=== PATIENT | male | born 1945 | race Two or more races ===

== ENCOUNTER 2018-10-06 13:33 | Inpatient (IN) | payer MEDICARE, OTHER ==
[~2018-10-06] VITALS: Ht 188 cm; Wt 113.4 kg
--- NOTE | 2018-10-06 13:45 | NUR ---
MAR LOUISE FRM [facility] FOR SYNCOPAL EPISODE 2X TODAY, N/V/D X 3 DAYS. PATIENT A/OX3, BREATHING EVEN AND UNLABORED, BP SLIGHTLY LOW. AWAITING FOR MD CARPIO.
[2018-10-06] MEDS ORDERED: MIDO5TAB PO (13:58)
[2018-10-06] MEDS ORDERED: ACET250T3 PO (13:58)
[2018-10-06] MEDS ORDERED: METF-440 PO (13:58)
[2018-10-06] MEDS ORDERED: DOCU-141 PO (13:58)
[2018-10-06] MEDS ORDERED: CANA300T PO (13:58)
[2018-10-06] MEDS ORDERED: ENOX40DI SQ (13:58)
[2018-10-06] MEDS ORDERED: SITA100T PO (13:58)
[2018-10-06] MEDS ORDERED: GEMF600T5 PO (13:58)
[2018-10-06] MEDS ORDERED: TRAZ-182 PO (13:58)
[2018-10-06] MEDS ORDERED: MULT-447 PO (13:58)
[2018-10-06] MEDS ORDERED: LISI2.5T2 PO (13:58)
[2018-10-06] MEDS ORDERED: BICA50TA49 PO (13:58)
[2018-10-06] MEDS ORDERED: ACET-868 PO (13:58)
[2018-10-06] MEDS ORDERED: TAMS-12 PO (13:58)
[2018-10-06] MEDS ORDERED: PANT40TA2 PO (13:58)
[2018-10-06] MEDS ORDERED: BRIM5DRO3 EACHEYE (13:58)
[2018-10-06] MEDS ORDERED: CLOT15CR63 TP (13:58)
--- NOTE | 2018-10-06 14:11 | NUR ---
CALLED NURSING SUP. FOR TELE BED
[2018-10-06 14:14] LABS: BASOPHILS % (AUTO) 0.4 % (0.0-2.0); EOSINOPHILS % (AUTO) 0.8 % (0.0-6.0); HEMATOCRIT 33 % (39-51); HEMOGLOBIN 10.5 g/dL (13.5-17.5); LYMPHOCYTES # (AUTO) 0.9 /CMM (0.8-4.8); LYMPHOCYTES % (AUTO) 14.9 % (20.0-44.0); MEAN CORPUSCULAR HGB CONC 32 g/dl (31.0-36.0); MEAN CORPUSCULAR VOLUME 88 fL (80-96); MONOCYTES # (AUTO) 0.5 /CMM (0.1-1.30); MONOCYTES % (AUTO) 8.7 % (2.0-12.0); NEUTROPHILS # (AUTO) 4.5 /CMM (1.8-8.9); NEUTROPHILS % (AUTO) 75.2 % (43.0-81.0); PLATELET COUNT (AUTO) 272 /CMM (150-450); RED BLOOD CELL COUNT(AUTO) 3.74 MIL/uL (4.5-6.0); WHITE BLOOD COUNT (AUTO) 5.9 K/uL (4.3-11.0)
[2018-10-06] MEDS ORDERED: ONDANSETRON 4 MG TAB.RAPDIS ONE (14:18)
[2018-10-06 14:24] LABS: CALCIUM, SERUM 9.7 mg/dL (8.5-10.1); CARBON DIOXIDE 21 mmol/L (21-32); CHLORIDE 103 mmol/L (98-107); CREATININE 1.7 mg/dL (0.6-1.3); GLUCOSE 150 mg/dL (74-106); POTASSIUM 3.9 mmol/L (3.5-5.1); SODIUM SERUM 136 mmol/L (136-145); UREA NITROGEN, BLOOD 17 mg/dL (7-18)
[2018-10-06 14:29] LABS: ALANINE AMINOTRANSFERASE 26 U/L (12-78); ALBUMIN 3.4 g/dL (3.4-5.0); ALKALINE PHOSPHATASE 106 U/L (46-116); ASPARTATE AMINOTRANSFERASE 22 U/L (15-37); BILIRUBIN,DIRECT 0.1 mg/dL (0.0-0.2); BILIRUBIN,TOTAL 0.3 mg/dL (0.2-1.0); TOTAL PROTEIN, SERUM 6.7 g/dL (6.4-8.2)
[2018-10-06] MEDS ORDERED: IV NS 0.9% 1,000 ML BAG IV ONE (14:30)
[2018-10-06] MEDS ORDERED: ONDANSETRON 4 MG TAB.RAPDIS PO ONE (14:30)
[2018-10-06 14:31] LABS: MAGNESIUM 1.5 mg/dL (1.8-2.4)
[2018-10-06] MEDS ORDERED: Magnesium 1GM/D5W 100ML PREMIX 100 ML IV ONE (14:36)
[2018-10-06] MEDS ORDERED: Magnesium 1GM/D5W 100ML PREMIX 100 ML IV SCH (15:00)
--- NOTE | 2018-10-06 15:15 | NUR ---
CLARIFIED WITH DR. ACUNA RE: MAGNESIUM ORDER, PER , ONLY GIVE 1GM OF MAG.
[2018-10-06] MEDS ORDERED: TEMAZEPAM 15 MG CAPSULE PO PRN (15:30)
[2018-10-06] MEDS: BICALUTAMIDE 50 MG TABLET PO SCH (15:30)
[2018-10-06] MEDS ORDERED: HYDROCODONE/APAP 5/325MG 1 EACH TABLET PO PRN (15:30)
[2018-10-06] MEDS ORDERED: CLOTRIMAZOLE 1% 15 GM TUBE TP SCH (15:30)
[2018-10-06] MEDS ORDERED: ONDANSETRON HCL/PF 4 MG/2 ML VIAL IVP PRN (15:30)
[2018-10-06] MEDS ORDERED: MAGNESIUM HYDROXIDE 30 ML UDC PO PRN (15:30)
[2018-10-06] MEDS ORDERED: HYDROCODONE/APAP 10/325MG 1 EA TABLET PO PRN (15:30)
[2018-10-06] MEDS: acetaZOLAMIDE 250 MG TABLET PO SCH (15:30)
[2018-10-06] MEDS ORDERED: ACETAMINOPHEN 325 MG TABLET PO PRN (15:30)
[2018-10-06] MEDS: PANTOPRAZOLE 40 MG TABLET.DR PO SCH (15:30)
[2018-10-06] MEDS ORDERED: MIDODRINE HCL (5MG) 5 MG TABLET PO PRN (15:30)
[2018-10-06] MEDS ORDERED: MAG HYDROX/AL HYDROX/SIMETH 30 ML UDC PO PRN (15:30)
--- NOTE | 2018-10-06 15:40 | NUR ---
TELE [id number]
--- NOTE | 2018-10-06 15:53 | NUR ---
REPORT GIVEN TO RENETTA NEWMAN.
[2018-10-06] MEDS ORDERED: DEXTROSE 50%-WATER 50 ML DISP.SYRIN IV PRN (16:00)
[2018-10-06] MEDS ORDERED: INSULIN REGULAR, HUMAN 100 UNIT/ML 3 ML VIAL SQ PRN (16:00)
[2018-10-06 16:30] VITALS: BP 99/55
--- NOTE | 2018-10-06 16:30 | NUR ---
CHEMISTRY DEPARTMENT CHAIR. PT RECEIVED FROM [facility] WITH X- PRESENT. IMMEDIATELY LEFT AND TAKEN TO CT. RETURNED AND PT REPORTS HAVING SYNCOPYX2 AT HOME. PT TOLERATING ROOM AIR WITHOUT RESP DISTRESS AND SPO2 WNL. PT WITH IVC INTACT AND SALINE FLUSH PATENT. PT SKIN ASSESSED AND PHOTOS CHARTED. PT DENIES PAIN, NAUSEA AND VOMITING A THIS TIME. PT BRIEFED ON POC AND IS WITHOUT CONCERN OR COMPLAINT AT THIS TIME.
--- NOTE | 2018-10-06 16:38 | NUR ---
PATIENT TRANSFERRED VIA ACLS PROTOCOL IN STABLE CONDITION. ENDORSED TO RENETTA NEWMAN. ACCOMPANIED BY .
[2018-10-06] MEDS: DOCUSATE SODIUM 100 MG CAPSULE PO SCH (17:00)
[2018-10-06] MEDS: GEMFIBROZIL 600 MG TABLET PO SCH (17:51)
[2018-10-06] MEDS: BRIMONIDINE TARTRATE OPHT SOLN 5 ML BOTTLE EACHEYE SCH (17:51)
[2018-10-06] MEDS: BLOOD SUGAR DIAGNOSTIC 1 EACH STRIP IN SCH ×2 (17:51→22:25)
--- NOTE | 2018-10-06 17:55 | NUR ---
MEDICATION NOTES. PT REPORTS HAVING ALL DAILY MEDS THIS MORNING PRIOR TO ADMISSION.
[2018-10-06] MEDS: IV NS 0.9% 1,000 ML IV PRN (18:05)
--- NOTE | 2018-10-06 19:00 | NUR ---
BOX ATTACHER. PT RESITING COMFORTABLY WITHOUT COMPLAINT. TOLERATING ROOM AIR WITHOUT DISTRESS AND DENIES PAIN. PT DENIES FURTHER NEEDS AT THIS TIME. PT BED IN LOWEST LOCKED POSITION WITH HANDRIALSX2 AND CALL HATHAWAY WITHIN REACH. WILL ENDORSE TO NIGHT NURSE AT BEDSIDE FOR FAINA.
--- NOTE | 2018-10-06 19:43 | NUR ---
RN NOTES RECEIVED PATIENT AWAKE. PATIENT IS A/O X3. PATIENT TOLERATING ROOM AIR WITHOUT SIGNS OF RESPIRATORY DISTRESS. DENIES SHORTNESS OF BREATH. IV SITE: INTACT AND PATENT. PATIENT DENIES PAIN AT THIS TIME. SAFETY PRECAUTIONS IMPLEMENTED. ALL NEEDS MET AT THIS TIME. BLOOD SUGAR RESULT IS 112. WILL CONTINUE TO MONITOR PATIENT THROUGHOUT THE SHIFT.
[2018-10-06 20:00] VITALS: BP 101/61
[2018-10-06] MEDS: TRAZODONE 50 MG TABLET PO SCH (22:00)
[2018-10-06] MEDS: TAMSULOSIN 0.4 MG CAP.SR.24H PO SCH (22:00)
[2018-10-07] VITALS (7 sets, daily range): BP systolic 101–119; BP diastolic 47–64
[2018-10-07] MEDS: IV NS 0.9% 1,000 ML IV PRN ×2 (02:24→18:23)
--- NOTE | 2018-10-07 06:12 | NUR ---
RN NOTES PATIENT IS RESTING COMFORTABLY IN BED. A/O X3. PATIENT IS TOLERATING ROOM AIR WITHOUT RESPIRATORY DISTRESS. DENIES SHORTNESS OF BREATH. DENIES PAIN AT THIS TIME. IV SITE: LAC 18G PATENT AND INTACT RUNNING NS AT 125 ML/HR. PATIENT DENIES FURTHER NEEDS AT THIS TIME. SAFETY PRECAUTIONS IMPLEMENTED. CALL LIGHT WITHIN REACH. WILL ENDORSE TO MORNING NURSE AT BEDSIDE.
[2018-10-07 06:45] LABS: BASOPHILS % (AUTO) 0.5 % (0.0-2.0); HEMATOCRIT 31 % (39-51); HEMOGLOBIN 10.1 g/dL (13.5-17.5); LYMPHOCYTES # (AUTO) 1.3 /CMM (0.8-4.8); LYMPHOCYTES % (AUTO) 27.2 % (20.0-44.0); MEAN CORPUSCULAR HGB CONC 33 g/dl (31.0-36.0); MEAN CORPUSCULAR VOLUME 87 fL (80-96); MONOCYTES # (AUTO) 0.7 /CMM (0.1-1.30); MONOCYTES % (AUTO) 15.4 % (2.0-12.0); NEUTROPHILS # (AUTO) 2.6 /CMM (1.8-8.9); NEUTROPHILS % (AUTO) 53.9 % (43.0-81.0); PLATELET COUNT (AUTO) 257 /CMM (150-450); RED BLOOD CELL COUNT(AUTO) 3.54 MIL/uL (4.5-6.0); WHITE BLOOD COUNT (AUTO) 4.8 K/uL (4.3-11.0)
--- NOTE | 2018-10-07 06:48 | NUR ---
RN NOTES ORTHOSTATIC BP: LAYING DOWN- 105/60 SITTING- 94/59 STANDING- FROM LYNN MEEK, UNABLE TO TAKE BP STANDING DUE TO PATIENT TURNING WHITE/PALE SOON PATIENT STANDS.
[2018-10-07 06:49] LABS: CHOLESTEROL 177 mg/dL (<200); HDL CHOLESTEROL 60 mg/dL (40-60); LDL 108 mg/dL (0-99); THYROID STIMULATING HORMONE 0.349 uIU/mL (0.358-3.74); TRIGLYCERIDES 66 mg/dL (30-150)
[2018-10-07 06:50] LABS: CARBON DIOXIDE 18 mmol/L (21-32); CHLORIDE 109 mmol/L (98-107); CREATININE 1.3 mg/dL (0.6-1.3); GLUCOSE 98 mg/dL (74-106); MAGNESIUM 1.7 mg/dL (1.8-2.4); PHOSPHORUS 3.2 mg/dL (2.5-4.9); POTASSIUM 3.8 mmol/L (3.5-5.1); SODIUM SERUM 140 mmol/L (136-145); UREA NITROGEN, BLOOD 13 mg/dL (7-18)
[2018-10-07] MEDS: BLOOD SUGAR DIAGNOSTIC 1 EACH STRIP IN SCH ×4 (07:41→21:22)
--- NOTE | 2018-10-07 07:42 | NUR ---
RN OPENING NOTE PT WAS RECIEVED IN BED AT LOWEST AND LOCKED POSITION WITH SIDE RAILS UP X2, A/O X3 FARSI AND MALAWIAN SPEAKING, ON TELE MONITOR NOTED TO BE SR WITH AVB WITH PERIODS OF PRASANTH, AMBULATORY WITH ASSIST, IV IS PATENT AND INTACT, LAST BLOOD SUGAR WAS 106 WITH NO COVERAGE NEEDED, SAFETY PRECAUTIONS IN PLACE, CALL LIGHT WITHIN REACH, WILL MONITOR ACCORDINGLY.
[2018-10-07 07:58] LABS: EOSINOPHILS % (MANUAL) 1 % (0-4); LYMPHOCYTES % (MANUAL) 28 % (16-48); MONOCYTES % (MANUAL) 11 % (0-11.0); NEUTROPHILS % (MANUAL) 60 (42-76)
[2018-10-07] MEDS: GEMFIBROZIL 600 MG TABLET PO SCH ×2 (08:21→17:14)
[2018-10-07] MEDS: DOCUSATE SODIUM 100 MG CAPSULE PO SCH ×2 (08:21→17:00)
[2018-10-07] MEDS: PANTOPRAZOLE 40 MG TABLET.DR PO SCH (08:21)
[2018-10-07] MEDS: MULTIVITAMINS,THERAGRAN 1 UDTAB TABLET PO SCH (08:21)
[2018-10-07] MEDS: BICALUTAMIDE 50 MG TABLET PO SCH (08:23)
[2018-10-07] MEDS: BRIMONIDINE TARTRATE OPHT SOLN 5 ML BOTTLE EACHEYE SCH ×2 (08:23→17:16)
[2018-10-07] MEDS: acetaZOLAMIDE 250 MG TABLET PO SCH (08:25)
[2018-10-07] MEDS ORDERED: LISINOPRIL (5MG) 5 MG TABLET PO SCH (09:00)
--- NOTE | 2018-10-07 09:10 | NUR ---
MS RN RECEIVED REPORT FROM DAYSWVFT RN, PATIENT ON BED, AWAKE,ALERT,ORIENTED X3,NOT IN ANY FORM OF DISTRESS, RESPIRATIONS EVEN AND UNLABORED,NO SOB NOTED, LUNGS ARE CLEAR,ABDOMEN SOFT,POSITIVE BOWEL SOUNDS,DENIES PAIN AT THIS TIME, WILL MONITOR PATIENT'S CONDITION.
--- NOTE | 2018-10-07 09:10 | NUR ---
RN NOTE CARE TRANSFERRED OVER TO MONICA RN AT THIS TIME
--- NOTE | 2018-10-07 10:51 | NUR ---
ms rn was seen by pt, max assist recommended.
[2018-10-07] MEDS: Magnesium 1GM/D5W 100ML PREMIX 100 ML IV SCH ×2 (13:31→17:11)
--- NOTE | 2018-10-07 17:30 | NUR ---
MS NEWMAN BLOOD SUGAR-99- NO COVERAGE GIVEN.
--- NOTE | 2018-10-07 17:54 | NUR ---
MS RN ON BED, NO DITRESS NOTED,ALL NEEDS ATTENDED.
--- NOTE | 2018-10-07 20:00 | NUR ---
RN OPENING NOTES RECEIVED PATIENT AWAKE IN BED. A/O X3. NO FORM OF RESPIRATORY DISTRESS, RESPIRATIONS EVEN AND UNLABORED. DENIES SHORTNESS OF BREATH. DENIES PAIN AT THIS TIME. WILL CONTINUE TO MONITOR PATIENT'S CONDITION THROUGHOUT THE SHIFT.
[2018-10-07] MEDS: TRAZODONE 50 MG TABLET PO SCH (21:27)
[2018-10-07] MEDS: TAMSULOSIN 0.4 MG CAP.SR.24H PO SCH (21:27)
[2018-10-08] MEDS: IV NS 0.9% 1,000 ML IV PRN (03:49)
[2018-10-08 06:22] LABS: CARBON DIOXIDE 19 mmol/L (21-32); CHLORIDE 111 mmol/L (98-107); CREATININE 1.1 mg/dL (0.6-1.3); GLUCOSE 105 mg/dL (74-106); MAGNESIUM 2.1 mg/dL (1.8-2.4); POTASSIUM 3.6 mmol/L (3.5-5.1); SODIUM SERUM 141 mmol/L (136-145); UREA NITROGEN, BLOOD 13 mg/dL (7-18)
[2018-10-08 06:35] LABS: FERRITIN 316 ng/mL (8-388)
--- NOTE | 2018-10-08 06:38 | NUR ---
RN CLOSING NOTES PATIENT IS AWAKE IN BED. A/O X3. NO FORM OF RESPIRATORY DISTRESS, RESPIRATIONS EVEN AND UNLABORED. DENIES SHORTNESS OF BREATH. DENIES PAIN AT THIS TIME. ALL NEEDS WERE MET. LATEST BLOOD SUGAR: 109. WILL ENDORSE TO AM SHIFT.
[2018-10-08 06:46] LABS: IRON, SERUM 75 ug/dl (50-175); TOTAL IRON BINDING CAPACITY 304 ug/dl (250-450)
[2018-10-08 07:12] LABS: FREE PSA 0.07 ng/mL (0.00-45); PROSTATE SPECIFIC ANTIGEN SCR 0.22 ng/mL (0.00-4.00)
[2018-10-08] MEDS: PANTOPRAZOLE 40 MG TABLET.DR PO SCH (07:30)
[2018-10-08] MEDS: BLOOD SUGAR DIAGNOSTIC 1 EACH STRIP IN SCH ×3 (07:30→17:16)
--- NOTE | 2018-10-08 07:30 | NUR ---
M/S TABLET COATERCARROT GRADER INSPECTOR RAFAELA TOOK ACCUCHECK AT 0600 WITH 109 RESULT.
--- NOTE | 2018-10-08 07:56 | NUR ---
M/S RN OPENING NOTES PATIENT A/O X 3 AND ABLE TO MAKE NEEDS KNOWN. NO S/SX OF RESPIRATORY DISTRESS. DENIES PAIN AND DISCOMFORT AT THIS TIME. ABDOMEN SOFT AND NON DISTENDED WITH ACTIVE BOWEL SOUNDS. CONTINENT B&B WITH URINAL ON BEDSIDE. IV ON LEFT ANTECUBITAL RUNNING NS AT 125 ML/HR WITH NO S/SX OF INFILTRATION ON SITE. ALL CONCERNS ATTENDED, PLACED CALL LIGHT WITHIN REACH TO ENSURE SAFETY. WILL CONTINUE TO EVALUATE CARE.
[2018-10-08 08:00] VITALS: BP 109/60
[2018-10-08] MEDS: MULTIVITAMINS,THERAGRAN 1 UDTAB TABLET PO SCH (08:52)
[2018-10-08] MEDS: DOCUSATE SODIUM 100 MG CAPSULE PO SCH ×2 (08:52→17:16)
[2018-10-08] MEDS: BICALUTAMIDE 50 MG TABLET PO SCH (08:52)
[2018-10-08] MEDS: BRIMONIDINE TARTRATE OPHT SOLN 5 ML BOTTLE EACHEYE SCH ×2 (08:52→17:16)
[2018-10-08] MEDS: GEMFIBROZIL 600 MG TABLET PO SCH ×2 (08:52→17:16)
[2018-10-08 16:00] VITALS: BP 100/56
--- NOTE | 2018-10-08 17:30 | NUR ---
MS/RN NOTE ASSISTANT FILM EDITOR FEDERICA WAS MADE AWARE THAT THE PATIENT HAS NOT BEEN SEEN BY NEURO. PER ASSISTANT FILM EDITOR FEDERICA STILL OK TO DISCHARGE THE PATIENT. CHARGE NURSE IS MADE AWARE.
--- NOTE | 2018-10-08 17:45 | NUR ---
M/S CARE MANAGEMENT ASSISTANT NOTE PATIENT DISCHARGED TO [facility] ACCOMPANIED BY 2 EMT'S [facility] [place]. PATIENT A/O X 2, ABLE TO MAKE NEEDS KNOWN. RESPIRATION EVEN AND UNLABORED WITH NO ACUTE RESPIRATORY DISTRESS. ABDOMEN SOFT AND NON DISTENDED WITH ACTIVE BOWEL SOUNDS. DENIES PAIN AND DISCOMFORT. SKIN WARM TO TOUCH, INTACT AND DRY WITH NO NEW OPEN SKIN BREAKDOWN. TOOK IV OUT WITH NO S/SX OF INFECTION. REPORT GIVEN TO SAMSON RN AT [facility]. PATIENT LEFT IN STABLE CONDITION, BP 94/53, UT 56, RR 19, T 98.6, O2 SAT AT 96% RA.
[2018-10-09 08:11] LABS: IMMUNOGLOBULIN A, SERUM 347 mg/dL (61-437); IMMUNOGLOBULIN G, SERUM 638 mg/dL (700-1600); IMMUNOGLOBULIN M, SERUM 38 mg/dL (15-143)
[2018-10-10 08:11] LABS: *SPE A/G RATIO 1.3 (0.7-1.7); *SPE ALBUMIN 3.2 g/dL (2.9-4.4); *SPE ALPHA-1-GLOBULIN 0.2 g/dL (0.0-0.4); *SPE ALPHA-2-GLOBULIN 0.7 g/dL (0.4-1.0); *SPE GLOBULIN, TOTAL 2.4 g/dL (2.2-3.9); *SPE M-SPIKE Not Observed g/dL (Not Observed); *SPEGAMMA GLOBULIN 0.6 g/dL (0.4-1.8)
== END 2018-10-08 18:08 | DRG 73 ==
LOC: ER 13:36 → EDSEX 13:36 → TELE 15:52 → MED 10-07 13:30
PROVIDERS: ADMIT Nurse Practitioner Acute Care; ATTEND Nurse Practitioner Acute Care
DX: G90.8 Other disorders of autonomic nervous system (principal); N17.0 Acute kidney failure with tubular necrosis; I12.9 Hypertensive chronic kidney disease with stage 1 through stage 4 chronic kidney disease, or unspecified chronic kidney disease; E86.0 Dehydration; E83.42 Hypomagnesemia; N18.9 Chronic kidney disease, unspecified; A08.4 Viral intestinal infection, unspecified; E11.22 Type 2 diabetes mellitus with diabetic chronic kidney disease; N40.0 Benign prostatic hyperplasia without lower urinary tract symptoms; C61 Malignant neoplasm of prostate; H40.9 Unspecified glaucoma; E03.9 Hypothyroidism, unspecified; E78.5 Hyperlipidemia, unspecified; K21.9 Gastro-esophageal reflux disease without esophagitis; I95.1 Orthostatic hypotension; D64.9 Anemia, unspecified; R13.10 Dysphagia, unspecified
CPT/HCPCS: 36415; 70450-TC; 71045-TC; 80048-TC; 80061-TC; 80076-TC; 82150-TC; 82728-TC; 82784; 82962-TC; 83540-TC; 83605-TC; 83690-TC; 83735-TC; 84100-TC; 84153-TC; 84154-TC; 84155; 84165; 84439-TC; 84443-TC; 84481; 84484-TC; 85025-TC; 85730-TC; 86334; 87040-TC; 87081-TC; 93307-TC; 97530-TC; G0378; J1815; J3475; J7030; Q0162

== ENCOUNTER 2019-09-09 18:37 | Inpatient (IN) | payer MEDICARE, OTHER ==
[~2019-09-09] VITALS: Ht 182.9 cm; Wt 99.8 kg
[~2019-09-09 18:37] MED LIST: ACET-868 PO; ACET250T3 PO; BICA50TA49 PO; BRIM5DRO3 EACHEYE; CANA300T PO; CLOT15CR63 TP; DOCU-141 PO; ENOX40DI SQ; GEMF600T5 PO; LISI2.5T2 PO; METF-440 PO; MIDO5TAB4 PO; MULT-447 PO; PANT40TA2 PO; SITA100T PO; TAMS-12 PO; TRAZ-182 PO
--- NOTE | 2019-09-09 18:41 | NUR ---
cha, from care facility, aggressive and hitting staff and others. PT IS VERBALLY ABUSIVE TOWARD ER STAFF. UNABLE TO OBTAIN MEDICAL INFORMATION. HYPERTENSIVE. NO ACUTE DISTRESS NOTED. READY FOR EVAL.
[2019-09-09] MEDS ORDERED: OLANZAPINE 10 MG VIAL IM ONE ×2 (18:53→19:00)
[2019-09-09 19:00] LABS: BASOPHILS % (AUTO) 0.4 % (0.0-2.0); EOSINOPHILS % (AUTO) 0.7 % (0.0-6.0); HEMATOCRIT 37 % (39-51); HEMOGLOBIN 12.1 g/dL (13.5-17.5); LYMPHOCYTES # (AUTO) 1.3 /CMM (0.8-4.8); MEAN CORPUSCULAR HGB CONC 33 g/dl (31.0-36.0); MEAN CORPUSCULAR VOLUME 84 fL (80-96); MONOCYTES # (AUTO) 0.7 /CMM (0.1-1.30); MONOCYTES % (AUTO) 8.3 % (2.0-12.0); NEUTROPHILS # (AUTO) 6.4 /CMM (1.8-8.9); NEUTROPHILS % (AUTO) 75.6 % (43.0-81.0); PLATELET COUNT (AUTO) 276 /CMM (150-450); WHITE BLOOD COUNT (AUTO) 8.5 K/uL (4.3-11.0)
[2019-09-09 19:06] LABS: CALCIUM, SERUM 9.2 mg/dL (8.5-10.1); CARBON DIOXIDE 28 mmol/L (21-32); CHLORIDE 97 mmol/L (98-107); CREATININE 1.3 mg/dL (0.6-1.3); POTASSIUM 3.7 mmol/L (3.5-5.1); SODIUM SERUM 133 mmol/L (136-145); UREA NITROGEN, BLOOD 11 mg/dL (7-18)
[2019-09-09 19:10] LABS: GLUCOSE 466 mg/dL (74-106)
[2019-09-09 19:12] LABS: ALANINE AMINOTRANSFERASE 14 U/L (12-78); ALCOHOL, BLOOD < 3 mg/dL (0-0); ALKALINE PHOSPHATASE 202 U/L (46-116); ASPARTATE AMINOTRANSFERASE 14 U/L (15-37); BILIRUBIN,DIRECT 0.1 mg/dL (0.0-0.2); BILIRUBIN,TOTAL 0.4 mg/dL (0.2-1.0); TOTAL PROTEIN, SERUM 6.8 g/dL (6.4-8.2)
[2019-09-09 19:19] LABS: ACETAMINOPHEN < 2 ug/ml (10-30); SALICYLATE 0.6 mg/dL (2.8-20.0)
[2019-09-09] MEDS ORDERED: INSULIN REGULAR, HUMAN 100 UNIT/ML 10 ML VIAL ONE (19:20)
[2019-09-09] MEDS ORDERED: IV NS 0.9% 1,000 ML BAG IV ONE ×2 (19:30→20:00)
[2019-09-09] MEDS ORDERED: INSULIN REGULAR, HUMAN 100 UNIT/ML 10 ML VIAL SQ ONE ×2 (19:30→21:30)
--- NOTE | 2019-09-09 19:42 | NUR ---
KENJI JOHN [phone]
[2019-09-09] MEDS ORDERED: LORAZEPAM INJ 2 MG/ML VIAL ONE (19:50)
--- NOTE | 2019-09-09 19:52 | NUR ---
CALLED JAVA TECHNICAL ARCHITECT SMALLTALK DEVELOPER. ETA 60 MIN
--- NOTE | 2019-09-09 19:55 | NUR ---
IV ACCESS OBTAINED. IVF INFUSING. PT BECOMING COMBATIVE. CARROTING MACHINE OFFBEARER AWARE
[2019-09-09] MEDS ORDERED: LORAZEPAM INJ 2 MG/ML VIAL IVP ONE (20:00)
--- NOTE | 2019-09-09 20:26 | NUR ---
BRENDA MEJIA RN PHOTOGRAPHIC SPECIALIST AT BEDSIDE TO BALAJI PT.
--- NOTE | 2019-09-09 22:05 | NUR ---
PT RESTING COMFORTABLY IN BED. NAD NOTED. VSS. WILL CONT TO MONITOR
--- NOTE | 2019-09-09 22:49 | NUR ---
IVF STILL INFUSING. MUST CONTINUOUSLY REMIND PT TO KEEP ARM STRAIGHT
[2019-09-10] MEDS: OLANZAPINE 10 MG VIAL IM ONE ×2 (00:02→00:24)
[2019-09-10] MEDS ORDERED: OLANZAPINE 10 MG VIAL IM ONE ×2 (00:17→02:30)
--- NOTE | 2019-09-10 02:33 | NUR ---
PT WAS MOVED FROM ER 12 TO ER 7
--- NOTE | 2019-09-10 03:21 | NUR ---
PT AWAKE, SCREAMING, UNCOOPERATIVE, KEEPS TRYING TO GET OUT OF BED, RESTLESS. ER MD HODGES AWARE WITH ORDERS RECEIVED. WILL CARRY OUT ORDERS.
[2019-09-10] MEDS ORDERED: LORAZEPAM INJ 2 MG/ML VIAL ONE (03:26)
[2019-09-10] MEDS ORDERED: LORAZEPAM INJ 2 MG/ML VIAL IV ONE (03:30)
--- NOTE | 2019-09-10 03:33 | NUR ---
PT MEDICATED ORDERED.
--- NOTE | 2019-09-10 04:47 | NUR ---
PT ASLEEP, NO ACUTE DISTRESS NOTED, RESP EVEN AND UNLABORED. CALL LIGHT WITHIN REACH. WILL CONTINUE TO MONITOR PT CLOSELY.
--- NOTE | 2019-09-10 06:26 | NUR ---
PT INCONNECT W/ URINE. A GOOD SKIN CARE AND TOTAL BODY CARE WAS PROVIDED. PT REMAINED CLEAN AND DRY. REMAINED COOPERATIVE DURING THE CARE . ON ONGOING MONITORING,
[2019-09-10] MEDS ORDERED: INSU100V42 SQ (07:21)
[2019-09-10] MEDS ORDERED: FINA5TAB11 PO (07:21)
[2019-09-10] MEDS ORDERED: SENN-261 PO (07:21)
[2019-09-10] MEDS ORDERED: BENZ1TAB7 PO (07:21)
[2019-09-10] MEDS ORDERED: HALO100A2 IM (07:21)
[2019-09-10] MEDS ORDERED: MAG30ORA PO (07:21)
--- NOTE | 2019-09-10 07:26 | NUR ---
PT MOVED FROM BED 07 TO BED 13
--- NOTE | 2019-09-10 14:27 | NUR ---
REPORT GIVEN TO PATY SPEARS
[2019-09-10] MEDS ORDERED: ACETAMINOPHEN 325 MG TABLET PO PRN (15:30)
[2019-09-10] MEDS ORDERED: MAGNESIUM HYDROXIDE 30 ML UDC PO PRN (15:30)
[2019-09-10] MEDS ORDERED: BLOOD SUGAR DIAGNOSTIC 1 EACH STRIP IN ONE (15:30)
[2019-09-10] MEDS ORDERED: TEMAZEPAM 7.5 MG CAPSULE PO PRN (15:30)
[2019-09-10] MEDS ORDERED: clonazePAM 0.5 MG TABLET PO PRN (15:30)
[2019-09-10] MEDS ORDERED: MAG HYDROX/AL HYDROX/SIMETH 30 ML UDC PO PRN (15:30)
[2019-09-10 16:00] VITALS: BP 189/79
[2019-09-10] MEDS: HALOPERIDOL 5 MG TABLET PO SCH (17:00)
[2019-09-10] MEDS: BENZTROPINE MESYLATE (1 MG) 1 MG TABLET PO SCH (17:00)
--- NOTE | 2019-09-10 17:01 | NUR ---
RN-CO: Admitted a 73 years old male from ED of [facility] who is on a 5150 hold for DTO and GD. Per hold, he came from from [facility] . He has increased agitation and striking out behavior. According. to the staff of the facility patient has been refusing medications, striking out of staff and resident at the facility. During face to face assessment of his primary RN who is Vietnamese Speaking like him he is alert and oriented x2, , denies suicidal and homicidal ideation. He also denied auditory and visual hallucination. He is disheveled, uses wheelchair for ambulation and he is suspicious and guarded when answering questions. Dr Parish (covering for Dr Faria) gave his admitting orders, noted and carried out. We gave him Patient's rights Handbook after RN explained it to him. He was oriented to the unit. Daughter "michelle" is aware that he is in [facility].
--- NOTE | 2019-09-10 17:17 | NUR ---
RN NOTE:PATIENT REFUSED ACCUCHECK ,SKIN ASSESSMENT . PAGED FOR ADMISSION ORDERS .
--- NOTE | 2019-09-10 18:19 | NUR ---
RN-CO: DR FUENTES WAS PAGED TO RECONCILE HOME MEDICATIONS.
[2019-09-11 06:53] LABS: ALBUMIN 2.4 g/dL (3.4-5.0); BILIRUBIN,TOTAL 0.7 mg/dL (0.2-1.0); CALCIUM, SERUM 8.5 mg/dL (8.5-10.1); CREATININE 1.1 mg/dL (0.6-1.3); POTASSIUM 3.6 mmol/L (3.5-5.1); TOTAL PROTEIN, SERUM 5.9 g/dL (6.4-8.2)
[2019-09-11] MEDS: HALOPERIDOL 5 MG TABLET PO SCH ×2 (09:00→16:28)
[2019-09-11] MEDS: BENZTROPINE MESYLATE (1 MG) 1 MG TABLET PO SCH ×2 (09:00→16:27)
--- NOTE | 2019-09-11 12:32 | NUR ---
SNF Contact: Anna ([phone]) from [facility] and she stated that the pt will not be accepted back to their facility due to his aggressive behaviors. She stated that the pt will need a locked unit.
--- NOTE | 2019-09-11 15:05 | NUR ---
Family Contact: SW called the pts , Low ([phone]), and informed her that the pt cannot return to the SNF that he came from and informed her that the SW will work with the MD and place the pt in a facility near their residence.
--- NOTE | 2019-09-11 15:29 | NUR ---
Initial Discharge Plan: Pt currently resides at [facility] located at [address] [place] [address]; ([phone]). Per pt, he would like to return. Per Anna at the facility, the pt cannot return. SW will work with the pt and the MD regarding appropriate discharge planning. SW will form a safe and proper discharge.
--- NOTE | 2019-09-11 16:30 | NUR ---
GPS RN NOTE: PATIENT REFUSED MEDICATION ON THIS SHIFT PT OFFERED X3 EXPLAIN RISK AND BENEFITS PT CONTINUE REFUSING PT REFUSED VSS NON COMPLIANT WITH CARE, EASILY AGITATED,USING WC. MD NOTIFIED NO NEW ORDERS AT THIS TIME.
--- NOTE | 2019-09-11 16:34 | NUR ---
GPS RN NOTE: MATHEMATICS IMPROVEMENT TEACHER BAKER NOTIFIED TO RECONCILED HOME MEDICATIONS AND ACCU CHECK . PT MATHEMATICS IMPROVEMENT TEACHER OK.
[2019-09-11] MEDS ORDERED: DEXTROSE 50%-WATER 50 ML DISP.SYRIN IV PRN (18:00)
[2019-09-11] MEDS: BLOOD SUGAR DIAGNOSTIC 1 EACH STRIP IN SCH (22:00)
[2019-09-11] MEDS: SENNOSIDES 8.6 MG TABLET PO SCH (22:00)
[2019-09-11] MEDS: TAMSULOSIN 0.4 MG CAP.SR.24H PO SCH (22:00)
--- NOTE | 2019-09-11 22:01 | NUR ---
GPS RN NOTES: MEDICATION & ACCU CHECK REFUSAL [place] REFUSED ACCU CHECK, FLOMAX 0.4MG PO, AND SENOKOT 8.6 MG PO THAT IS DUE @2200. PT STATED, "GET OUT WITCH!" EXPLAINED RISKS AND BENEFITS. PT STILL REFUSED X3. CONTINUE TO MONITOR.
[2019-09-12] MEDS: BLOOD SUGAR DIAGNOSTIC 1 EACH STRIP IN SCH ×4 (07:23→22:00)
[2019-09-12] MEDS: PANTOPRAZOLE 40 MG TABLET.DR PO SCH (07:30)
--- NOTE | 2019-09-12 07:32 | NUR ---
RN NOTE: PT REFUSED AM ACCUCHECK, VITAL SIGNS AND PO MEDICATIONS. EDUCATED PT ON IMPORTANCE OF VITALS SIGNS AND MEDICATION COMPLIANCE. PT CONTINUED TO REFUSE X 3. "GET OUT OF HERE AND DON'T COME IN AGAIN". WILL CONTINUE TO MONITOR AND EDUCATE PATIENT.
[2019-09-12] MEDS: METFORMIN 500 MG TABLET PO SCH ×2 (08:44→16:27)
[2019-09-12] MEDS: DOCUSATE SODIUM 100 MG CAPSULE PO SCH ×2 (08:44→16:26)
[2019-09-12] MEDS: BENZTROPINE MESYLATE (1 MG) 1 MG TABLET PO SCH ×2 (08:44→16:26)
[2019-09-12] MEDS: acetaZOLAMIDE 250 MG TABLET PO SCH (08:44)
[2019-09-12] MEDS: BICALUTAMIDE 50 MG TABLET PO SCH (08:44)
[2019-09-12] MEDS: LISINOPRIL (5MG) 5 MG TABLET PO SCH (08:45)
[2019-09-12] MEDS: FINASTERIDE (5 MG) 5 MG TABLET PO SCH (08:45)
[2019-09-12] MEDS: HALOPERIDOL 5 MG TABLET PO SCH ×2 (08:45→16:27)
[2019-09-12] MEDS: LINAGLIPTIN 5 MG TABLET PO SCH (08:46)
[2019-09-12] MEDS: MULTIVIT W/MINERALS 1 TAB TABLET PO SCH (08:46)
--- NOTE | 2019-09-12 09:00 | NUR ---
RN NOTE: PT REFUSAL OF MEDICATIONS PT REFUSED 09:00 MEDICATIONS. EDUCATED PT ON IMPORTANCE AND NEED FOR MEDICATION COMPLIANCE. PT CONTINUED TO REFUSE X3. PT STATED, "GET OUT". WILL CONT TO MONITOR PT FOR SAFETY AND BEHAVIOR.
--- NOTE | 2019-09-12 09:08 | NUR ---
RN NOTE: PT RECEIVED AMBULATING IN HALLWAY. PT A+OX2. ABLE TO MAKE NEEDS KNOWN. PT REGUSED AM VITAL SIGNS, ACCUCHECK AND PO MEDICATIONS. PT BECAME VERBALLY AGRESSIVE WITH EDUCATION REGARDING PLAN OF CARE AND MEDICATION ADMINISTRATION. PT DENIES CURRENT SI/HI. WILL CONT TO MONITOR PT PER [facility] PROTOCOL.
--- NOTE | 2019-09-12 11:51 | NUR ---
RN NOTE: PT REFUSAL FOR ACCUCHECK. PT REFUSED 12:00 ACCUCHECK. EDUCATED PT ON IMPORTANCE OF BLOOD SUGAR MONITORING WITH THE DIAGNOSIS OF DIABETES. PT CONTINUED TO REFUSE X3. "DON'T ASK ME AGAIN. GET OUT". WILL MONITOR FOR SIGNS AND SYMPTOMS OF HYPER/HYPO GLYCEMIA
--- NOTE | 2019-09-12 15:05 | NUR ---
Group Note: SW encouraged pt to attend group therapy on 09/12/19 at 2pm discussing social supports. Pt stated that he did not want to participate and that he wanted to remain in his room in his bed. SW stated that he can still discuss the topic with the SW and he stated that his is his support system. He stated that it has been hard for him to be away from her but he knows that he needs to be in a facility.
--- NOTE | 2019-09-12 16:27 | NUR ---
RN NOTE: PT MEDICATION REFUSAL PT REFUSED 17:00 PO MEDICATIONS. "GET ME BLACK COFFEE". PT EDUCATED REGARDING THE IMPORTANCE OF MEDICATION ADMINISTRATION COMPLIANCE. PT CONT'D TO REFUSE X3. WILL CONT TO MONITOR PT FOR SAFETY AND BEHAVIOR.
[2019-09-12] MEDS: ENOXAPARIN SODIUM 40 MG/0.4 ML DISP.SYRIN SQ SCH (21:00)
--- NOTE | 2019-09-12 21:18 | NUR ---
GPS RN NOTES: MEDICATION REFUSAL SD REFUSED LOVENOX DUE @2100. PT STATED, "GET OUT! NO!" EXPLAINED RISKS AND BENEFITS. PT STILL REFUSED X3. CONTINUE TO MONITOR.
[2019-09-12] MEDS: TAMSULOSIN 0.4 MG CAP.SR.24H PO SCH (22:00)
[2019-09-12] MEDS: SENNOSIDES 8.6 MG TABLET PO SCH (22:00)
--- NOTE | 2019-09-12 22:06 | NUR ---
GPS RN NOTES: MEDICATION & ACCU CHECK REFUSAL [place] REFUSED ACCU CHECK, FLOMAX 0.4MG PO, AND SENOKOT 8.6 MG PO THAT IS DUE @2200. PT STATED, "GET OUT! I WILL TAKE IT TOMORROW NOT NOW!" EXPLAINED RISKS AND BENEFITS. PT STILL REFUSED X3. CONTINUE TO MONITOR.
[2019-09-13] MEDS: BLOOD SUGAR DIAGNOSTIC 1 EACH STRIP IN SCH ×4 (07:28→22:00)
--- NOTE | 2019-09-13 07:28 | NUR ---
GPS RN NOTE: REFUSAL UPON ENTERING ROOM AND SAYING HELLO PT STATED "SAVE YOUR HELLO FOR TOMORROW". WHEN ASKED IF I MAY CHECK HIS BLOOD SUGAR HE SAID "NO, DO NOT TALK TO ME". PATIENT ATTEMPTED TO EXPLAIN RISKS AND BENEFITS PATIENT BECAME INCREASINGLY AGITATED.
[2019-09-13] MEDS: PANTOPRAZOLE 40 MG TABLET.DR PO SCH (07:30)
--- NOTE | 2019-09-13 07:31 | NUR ---
GPS RN OPENING NOTE: RECEIVED PATIENT IN BED, EASILY AGITATED. REFUSING ACCUCHECK. STATED TO RN "DO NOT TALK TO ME". PATIENT IS REFUSING TO COMMUNICATE, IS IRRITABLE AND DOES NOT FOLLOW PLAN OF CARE. PATIENT WILL NOT ANSWER QUESTIONS TO WHETHER OR NOT HE HAS THOUGHTS OF SI/HI OR VAH. PATIENT HAD RIESE FILED ON 09/12/2019. PATIENT HAS NOT TAKEN MEDICATION WHILE HERE AT [facility]. SAFETY PRECAUTIONS OBSERVED. ENVIRONMENTAL CHECKS DONE. WILL CONTINUE TO MONITOR Q15 FOR MOOD, SAFETY AND BEHAVIOR.
[2019-09-13] MEDS: BENZTROPINE MESYLATE (1 MG) 1 MG TABLET PO SCH ×2 (08:57→16:25)
[2019-09-13] MEDS: BICALUTAMIDE 50 MG TABLET PO SCH (08:57)
[2019-09-13] MEDS: MULTIVIT W/MINERALS 1 TAB TABLET PO SCH (08:58)
[2019-09-13] MEDS: LISINOPRIL (5MG) 5 MG TABLET PO SCH (08:58)
[2019-09-13] MEDS: FINASTERIDE (5 MG) 5 MG TABLET PO SCH (08:58)
[2019-09-13] MEDS: HALOPERIDOL 5 MG TABLET PO SCH ×2 (08:58→16:25)
[2019-09-13] MEDS: DOCUSATE SODIUM 100 MG CAPSULE PO SCH ×2 (08:58→16:25)
[2019-09-13] MEDS: METFORMIN 500 MG TABLET PO SCH ×2 (08:58→16:25)
[2019-09-13] MEDS: acetaZOLAMIDE 250 MG TABLET PO SCH (08:58)
[2019-09-13] MEDS: LINAGLIPTIN 5 MG TABLET PO SCH (08:59)
--- NOTE | 2019-09-13 08:59 | NUR ---
GPS RN NOTE: MED REFUSAL PATIENT REFUSED ALL AM MEDICATIONS DESPITE EXPLANATION OF RISKS AND BENEFITS X3. WILL CONTINUE TO MONITOR Q15 PER [facility] PROTOCOL
--- NOTE | 2019-09-13 16:23 | NUR ---
GPS RN NOTE: MED AND ACCUCHECK REFUSAL PATIENT REFUSED PM MEDICATIONS STATING THAT HE IS NOT SICK. HE WAS ORIENTED TO TIME AND PLACE AND RESPONDED THAT HE IS NOT IN HOSPITAL BUT HE IS IN [place]. HE STATED THAT THE RN IS THE SICK ONE, NOT HIM. WHEN ASKED ABOUT PERFORMING ACCUCHECK PATIENT REPEATED THAT HE IS NOT THE SICK ONE AND SAID "GET OUT".
--- NOTE | 2019-09-13 19:15 | NUR ---
GPS RN OPENING NOTE: RECEIVED PATIENT IN BED, SLEEPING, EASILY AROUSE. PAT. IS CONFUSED, DISORIENTED, DISORGANIZED, USES W/C WHEN OUT OF BED. PATIENT IS REFUSING TO COMMUNICATE, IS IRRITABLE AND DOES NOT FOLLOW PLAN OF CARE. PATIENT WILL NOT ANSWER QUESTIONS & ASKED THE RN TO LEAVE HIS ROOM & LET HIM SLEEP. PATIENT HAD RIESE FILED ON 09/12/2019. PATIENT HAS NOT TAKEN MEDICATION WHILE HERE AT [facility], PER AM REPORT. ENVIRONMENTAL SAFETY CHECKS DONE. BED ALARM ON. BED IN LOW LOCKED POSITION. WILL CONTINUE TO MONITOR Q15 FOR MOOD, SAFETY AND BEHAVIOR.
--- NOTE | 2019-09-13 20:00 | NUR ---
REFUSED VITALS PATIENT REFUSED VITAL SIGNS X 3, DESPITE OF RISKS & BENEFITS EXPLANATIONS.
[2019-09-13] MEDS: ENOXAPARIN SODIUM 40 MG/0.4 ML DISP.SYRIN SQ SCH (21:00)
[2019-09-13] MEDS: TAMSULOSIN 0.4 MG CAP.SR.24H PO SCH (22:00)
[2019-09-13] MEDS: SENNOSIDES 8.6 MG TABLET PO SCH (22:00)
--- NOTE | 2019-09-13 22:03 | NUR ---
REFUSED LOVENOX PATIENT IS EASILY AGITATED, REFUSED LOVENOX ORDERED BY X 3 DESPITE OF RISKS & BENEFITS EXPLANATIONS. PT STATED," I DON'T NEED ANY MEDICINE, GO OUT." PT. IS UNCOOPERATIVE WITH CARE & MEDS.
--- NOTE | 2019-09-13 22:13 | NUR ---
REFUSED ACCU CHECK & 2200 MEDS PATIENT IS EASILY AGITATED, GOT AGITATED & AGGRESSIVE. REFUSED ACCU CHECK & 2200 MEDS ORDERED BY X 3 DESPITE OF RISKS & BENEFITS EXPLANATIONS. PT STATED," MY BLOOD SUGAR IS WONDERFUL,I DON'T NEED ANY MEDICINE, GET OUT." PT. IS UNCOOPERATIVE WITH CARE & MEDS.
[2019-09-14] MEDS: PANTOPRAZOLE 40 MG TABLET.DR PO SCH (07:30)
[2019-09-14] MEDS: BLOOD SUGAR DIAGNOSTIC 1 EACH STRIP IN SCH ×5 (07:30→22:04)
[2019-09-14] MEDS: HALOPERIDOL 5 MG TABLET PO SCH ×2 (08:02→17:10)
[2019-09-14] MEDS: BENZTROPINE MESYLATE (1 MG) 1 MG TABLET PO SCH ×2 (08:04→17:10)
[2019-09-14] MEDS: acetaZOLAMIDE 250 MG TABLET PO SCH (08:04)
[2019-09-14] MEDS: BICALUTAMIDE 50 MG TABLET PO SCH (08:04)
[2019-09-14] MEDS: DOCUSATE SODIUM 100 MG CAPSULE PO SCH ×2 (08:04→17:00)
[2019-09-14] MEDS: LISINOPRIL (5MG) 5 MG TABLET PO SCH (08:05)
[2019-09-14] MEDS: METFORMIN 500 MG TABLET PO SCH ×2 (08:05→17:00)
[2019-09-14] MEDS: LINAGLIPTIN 5 MG TABLET PO SCH (08:09)
[2019-09-14] MEDS: MULTIVIT W/MINERALS 1 TAB TABLET PO SCH (08:09)
[2019-09-14] MEDS: FINASTERIDE (5 MG) 5 MG TABLET PO SCH (08:09)
--- NOTE | 2019-09-14 08:09 | NUR ---
RN NOTE- MED REFUSAL/ PT SPOKE W DR CANELA. PT REFUSING ACCUCHECKS, VS AND MEDS. TOLD PT IF HE TAKES RX HE WILL GO HOME SOONER. DR CANELA ASKED ME TO WORK W PT IN TAKING HIS HALDOL AND COGENTIN. PT AGREED TO TAKE HIS HALDOL AND COGENTIN THIS MORNING FROM ME WHICH HE PROMPTLY DID. I CHECKED FOR CHEEKING. WILL CONTINUE TO ENCOURAGE HIS PARTIAL MED COMPLIANCE AND MNONITOR BEHAVIORS.
[2019-09-14] MEDS: INSULIN REGULAR, HUMAN 100 UNIT/ML 3 ML VIAL SQ PRN ×4 (09:13→22:52)
--- NOTE | 2019-09-14 09:17 | NUR ---
RN NOTE- MED REFUSAL ACCUCHECK/ PT AGREED TO ACCUCHECK AT THIS TIME. BS 351. PT AGREED TO 10 UNITS SSI PER COVERAGE. CONFERRED W TOW TRUCK DRIVER BAKER. REGULAR SSI GIVEN
--- NOTE | 2019-09-14 10:44 | NUR ---
RN NOTE- PT RESTING IN BED, OOB TO WCR PERIODICALLY. PO INTAKE GOOD. SPOKE W DR CANELA AND AGREED TO TAKE SOME MEDS. PT TOOK HALDOL AND COGENTIN FOR THIS RN. PT AGREED TO ACCUCHECK. BS 351. AGREED TO 10 UNITS SSI. REFUSED ALL OTHER MEDS. CONTINUE TO DEVELOP TRUST W PT IN HOPE OF FULL MED COMPLIANCE. MIKE SI HI VH. WILL CONT TO MONITOR PT Q15 PER [facility] PROTOCOL.
[2019-09-14 20:02] VITALS: BP 128/64
[2019-09-14] MEDS: TAMSULOSIN 0.4 MG CAP.SR.24H PO SCH (21:49)
[2019-09-14] MEDS: SENNOSIDES 8.6 MG TABLET PO SCH (21:50)
[2019-09-14] MEDS: ENOXAPARIN SODIUM 40 MG/0.4 ML DISP.SYRIN SQ SCH (21:52)
--- NOTE | 2019-09-14 22:54 | NUR ---
PT ACCU CHEK DONE. BS 238, PT REFUSED SLIDING SCALE INSULIN ORDERED. WILL CONTINUE TO MONITOR
[2019-09-15] MEDS: INSULIN REGULAR, HUMAN 100 UNIT/ML 3 ML VIAL SQ PRN ×4 (07:12→22:00)
[2019-09-15] MEDS: BLOOD SUGAR DIAGNOSTIC 1 EACH STRIP IN SCH ×4 (07:14→21:58)
[2019-09-15] MEDS: METFORMIN 500 MG TABLET PO SCH ×2 (08:05→17:15)
[2019-09-15] MEDS: PANTOPRAZOLE 40 MG TABLET.DR PO SCH (08:05)
[2019-09-15] MEDS: MULTIVIT W/MINERALS 1 TAB TABLET PO SCH (08:05)
[2019-09-15] MEDS: DOCUSATE SODIUM 100 MG CAPSULE PO SCH ×2 (08:05→17:14)
[2019-09-15] MEDS: FINASTERIDE (5 MG) 5 MG TABLET PO SCH (08:05)
[2019-09-15] MEDS: LINAGLIPTIN 5 MG TABLET PO SCH (08:06)
[2019-09-15] MEDS: BENZTROPINE MESYLATE (1 MG) 1 MG TABLET PO SCH ×2 (08:06→17:15)
[2019-09-15] MEDS: HALOPERIDOL 5 MG TABLET PO SCH ×2 (08:06→17:15)
[2019-09-15] MEDS: acetaZOLAMIDE 250 MG TABLET PO SCH (08:06)
[2019-09-15] MEDS: BICALUTAMIDE 50 MG TABLET PO SCH (08:08)
[2019-09-15] MEDS: LISINOPRIL (5MG) 5 MG TABLET PO SCH (08:16)
--- NOTE | 2019-09-15 10:08 | NUR ---
RN NOTE- FULLY MED COMPLIANT THIS MORNING. PT COOPERATIVE, CALM AND DIRECTABLE. PO INTAKE GOOD. OOB IN WCR AND IN DAY ROOM. WATCHING TV, INTERACTIVE W STAFF. DENIES SI HI AH VH. WILL CONT TO MONITOR PT Q15 PER GPS PROTOCOL.
[2019-09-15] MEDS ORDERED: HALOPERIDOL DECANOATE IM 100 MG/ML AMPUL IM SCH (15:00)
[2019-09-15] MEDS: ENOXAPARIN SODIUM 40 MG/0.4 ML DISP.SYRIN SQ SCH (21:00)
[2019-09-15] MEDS: TAMSULOSIN 0.4 MG CAP.SR.24H PO SCH (21:59)
[2019-09-15] MEDS: SENNOSIDES 8.6 MG TABLET PO SCH (21:59)
--- NOTE | 2019-09-15 22:00 | NUR ---
GPS RN NOTES: MEDICATION REFUSAL PT REFUSED LOVENOX THAT IS DUE @2100, FLOMAX 0.4MG PO, INSULIN, SENOKOT 8.6 MG PO THAT IS DUE @2200. PT STATED, "NO! I WILL TAKE IT TOMORROW. NOT NOW!" PT INCREASED AGITATION. EXPLAINED RISKS AND BENEFITS. PT STILL REFUSED X3. CONTINUE TO MONITOR.
[2019-09-16] MEDS: INSULIN REGULAR, HUMAN 100 UNIT/ML 3 ML VIAL SQ PRN ×4 (07:18→21:19)
[2019-09-16] MEDS: BLOOD SUGAR DIAGNOSTIC 1 EACH STRIP IN SCH ×4 (07:21→21:19)
[2019-09-16] MEDS: PANTOPRAZOLE 40 MG TABLET.DR PO SCH (07:56)
[2019-09-16] MEDS: BENZTROPINE MESYLATE (1 MG) 1 MG TABLET PO SCH ×2 (08:12→16:26)
[2019-09-16] MEDS: acetaZOLAMIDE 250 MG TABLET PO SCH (08:12)
[2019-09-16] MEDS: FINASTERIDE (5 MG) 5 MG TABLET PO SCH (08:12)
[2019-09-16] MEDS: DOCUSATE SODIUM 100 MG CAPSULE PO SCH ×2 (08:12→16:26)
[2019-09-16] MEDS: MULTIVIT W/MINERALS 1 TAB TABLET PO SCH (08:12)
[2019-09-16] MEDS: LINAGLIPTIN 5 MG TABLET PO SCH (08:12)
[2019-09-16] MEDS: METFORMIN 500 MG TABLET PO SCH ×2 (08:12→16:25)
[2019-09-16] MEDS: HALOPERIDOL 5 MG TABLET PO SCH ×2 (08:12→16:25)
[2019-09-16] MEDS: LISINOPRIL (5MG) 5 MG TABLET PO SCH (08:13)
[2019-09-16] MEDS: BICALUTAMIDE 50 MG TABLET PO SCH (08:14)
--- NOTE | 2019-09-16 09:00 | NUR ---
RN NOTE- PT HAD REFUSED RX AT NOC SHIFT. THIS MORNING HOWEVER, PT COOPERATIVE, CALM AND DIRECTABLE. MED COMPLIANT PO INTAKE GOOD. OOB IN WCR AND IN DAY ROOM. WATCHING TV, INTERACTIVE W STAFF. DENIES SI HI AH VH. WILL CONT TO MONITOR PT Q15 PER [facility] PROTOCOL.
--- NOTE | 2019-09-16 15:08 | NUR ---
SNF Referral: RODY faxed a referral to [facility] with attn to Hadley to the fax number: [phone].
--- NOTE | 2019-09-16 15:08 | NUR ---
SNF Contact: Anibal ([phone]) from [facility] and stated that the pt was accepted to their facility.
--- NOTE | 2019-09-16 19:20 | NUR ---
GPS RN opening notes Received Pt in bed and awake. Pt is alert and orientedX2, anxious, disorganized, confused, and disoriented. Respiration is normal in room air. No SOB. No S/S of distress noted. Offered fluids and snacks. Pt denies SI/HI at this time. Reality orientation provided. Safety precautions is maintained. Fall precautions is maintained. Will continue to monitor for mood safety and behavior Q 15 mins checks according to [facility] hospital protocol.
[2019-09-16 20:00] VITALS: BP 103/53
[2019-09-16 20:01] VITALS: BP 103/53
[2019-09-16] MEDS: ENOXAPARIN SODIUM 40 MG/0.4 ML DISP.SYRIN SQ SCH (21:00)
[2019-09-16] MEDS: SENNOSIDES 8.6 MG TABLET PO SCH (21:21)
[2019-09-16] MEDS: TAMSULOSIN 0.4 MG CAP.SR.24H PO SCH (21:21)
--- NOTE | 2019-09-16 22:00 | NUR ---
GPS RN notes Pt refused medications lovenox 40mg, flomax 0.4 mg and sennokot tab 8.6 mg. Made aware risks and benefits. offered multiple times. Pt keep refusing. Pt stated " tomorrow morning." Charge nurse is aware and informed. Will continue to monitor.
--- NOTE | 2019-09-17 07:31 | NUR ---
GPS RN closing notes Pt is resting in bed comfortably. Respiration is normal. No SOB. No S/S of distress noted. VS is stable. Kept Pt clean, dry and comfortable. All needs met and attended. Safety precautions is maintained. Bed at low position, brakes locked, side rails upX2. Will endorse to morning nurse for FIANA.
[2019-09-17] MEDS: BLOOD SUGAR DIAGNOSTIC 1 EACH STRIP IN SCH ×4 (07:39→21:57)
[2019-09-17] MEDS: INSULIN REGULAR, HUMAN 100 UNIT/ML 3 ML VIAL SQ PRN ×3 (07:48→17:50)
[2019-09-17 08:00] VITALS: BP 121/62
[2019-09-17] MEDS: LINAGLIPTIN 5 MG TABLET PO SCH (08:24)
[2019-09-17] MEDS: DOCUSATE SODIUM 100 MG CAPSULE PO SCH ×2 (08:24→17:00)
[2019-09-17] MEDS: FINASTERIDE (5 MG) 5 MG TABLET PO SCH (08:25)
[2019-09-17] MEDS: BENZTROPINE MESYLATE (1 MG) 1 MG TABLET PO SCH ×2 (08:25→17:06)
[2019-09-17] MEDS: PANTOPRAZOLE 40 MG TABLET.DR PO SCH (08:25)
[2019-09-17] MEDS: HALOPERIDOL 5 MG TABLET PO SCH ×2 (08:25→17:06)
[2019-09-17] MEDS: METFORMIN 500 MG TABLET PO SCH ×2 (08:25→17:06)
[2019-09-17] MEDS: MULTIVIT W/MINERALS 1 TAB TABLET PO SCH (08:25)
[2019-09-17] MEDS: acetaZOLAMIDE 250 MG TABLET PO SCH (08:25)
[2019-09-17] MEDS: BICALUTAMIDE 50 MG TABLET PO SCH (08:28)
[2019-09-17] MEDS: LISINOPRIL (5MG) 5 MG TABLET PO SCH (08:28)
--- NOTE | 2019-09-17 10:06 | NUR ---
GPS RN OPENING NOTE: RECEIVED PATIENT IN BED,RESTING. PT AOX2. ABLE TO MAKE NEEDS KNOWN. PT BEHAVIOR IMPROVED AND IS COMPLIANT WITH ACCUCHECK AND MEDICATION ADMINISTRATION. DENIES SI//HI AND VAH. PATIENT ATE FULL MEAL FOR BREAKFAST. ENVIRONMENTAL CHECKS DONE AND SAFETY PRECAUTIONS IN PLACE. WILL CONTINUE TO MONITOR PATIENT Q15 FOR MOOD, SAFETY AND BEHAVIOR
--- NOTE | 2019-09-17 12:56 | NUR ---
Family Contact: SW called the pts , Low ([phone]), and informed her that the pt is going to be discharged to [facility] on and provided her with the details of the facility.
--- NOTE | 2019-09-17 12:57 | NUR ---
Family Contact: Pts , Low ([phone]), called the SW and stated that she has been in that area of the facility and she did not like that area. She asked the SW to send the pt to a different facility in [place]. SW stated that it is difficult to accept a pt when the notes state that he was aggressive and he came in due to hitting staff members. SW stated that she will attempt to place the pt elsewhere.
--- NOTE | 2019-09-17 13:33 | NUR ---
SNF Referral: RODY faxed a referral to [facility] with attn to Admissions to the fax number: [phone].
--- NOTE | 2019-09-17 15:56 | NUR ---
Group Note: SW encouraged pt to attend group therapy on 09/17/19 at 2pm discussing reality testing regarding their admission. Pt stated that he was aggressive at the previous facility and that is why he was admitted to the hospital. Pt stated that he did not want to participate in group therapy and he is excited to be discharged on . SW informed him that attending groups is part of his goals and the pt stated that it will not help him to talk to other patients and listen to them.
[2019-09-17 16:00] VITALS: BP 130/67
[2019-09-17 20:17] VITALS: BP 93/67
--- NOTE | 2019-09-17 20:31 | NUR ---
GPS RN NOTE RECEIVED PATIENT LYING IN BED SLEEPING WITH NO S/S OF RESPIRATORY DISTRESS. PT WOKE UP AT ABOUT 1940, ALERT AND ORIENTED X2. PT APPEARS DEPRESSED, IRRITABLE, PASSIVE, ANXIOUS, DISORGANIZED AND DISORIENTED WITH FLAT AFFECT. PT REFUSED TO ANSWER ASSESSMENT QUESTIONS. PT WAS SEEN IN HALLWAY AMBULATING IN W/C, NOT ENGAGING WITH STAFF OR PEERS. NO S/S OF ANY DISTRESS AT THIS TIME. PT BREATHING IS EVEN, UNLABORED WITH EQUAL RISE AND FALL OF THE CHEST. ON ROOM AIR WITH SPO2 98%. NO COMPLAINS OF PAIN. PT IS MEDICATION COMPLIANT. REFUSED TO WEAR HIS PT ARMBAND, ARMBAND PLACED IN CHART. SAFETY CHECKS DONE. FALL PRECAUTION CONTINUED. BED ALARM ON. BED IN LOW LOCKED POSITION. CALL LIGHT WITHIN REACH. OFFERED SNACKS AND FLUID TOLERATED. WILL CONTINUE TO MONITOR Q15MIN FOR MOOD, SAFETY AND BEHAVIOR.
[2019-09-17] MEDS: ENOXAPARIN SODIUM 40 MG/0.4 ML DISP.SYRIN SQ SCH ×2 (21:00→21:47)
[2019-09-17] MEDS: SENNOSIDES 8.6 MG TABLET PO SCH ×2 (21:48→21:56)
[2019-09-17] MEDS: TAMSULOSIN 0.4 MG CAP.SR.24H PO SCH ×2 (21:48→21:56)
[2019-09-18] MEDS: BLOOD SUGAR DIAGNOSTIC 1 EACH STRIP IN SCH ×4 (07:32→22:18)
[2019-09-18] MEDS: PANTOPRAZOLE 40 MG TABLET.DR PO SCH (08:22)
[2019-09-18] MEDS: LISINOPRIL (5MG) 5 MG TABLET PO SCH (09:00)
[2019-09-18] MEDS: acetaZOLAMIDE 250 MG TABLET PO SCH (09:15)
[2019-09-18] MEDS: METFORMIN 500 MG TABLET PO SCH ×2 (09:15→16:25)
[2019-09-18] MEDS: DOCUSATE SODIUM 100 MG CAPSULE PO SCH ×2 (09:15→16:39)
[2019-09-18] MEDS: HALOPERIDOL 5 MG TABLET PO SCH ×2 (09:15→16:25)
[2019-09-18] MEDS: MULTIVIT W/MINERALS 1 TAB TABLET PO SCH (09:15)
[2019-09-18] MEDS: BENZTROPINE MESYLATE (1 MG) 1 MG TABLET PO SCH ×2 (09:15→16:25)
[2019-09-18] MEDS: LINAGLIPTIN 5 MG TABLET PO SCH (09:15)
[2019-09-18] MEDS: FINASTERIDE (5 MG) 5 MG TABLET PO SCH (09:15)
[2019-09-18] MEDS: BICALUTAMIDE 50 MG TABLET PO SCH (09:16)
--- NOTE | 2019-09-18 09:20 | NUR ---
gps rn note: vital signs patient refused vital sign measurement and bp med held due to refusal
[2019-09-18] MEDS: INSULIN REGULAR, HUMAN 100 UNIT/ML 3 ML VIAL SQ PRN ×3 (09:26→22:25)
--- NOTE | 2019-09-18 09:35 | NUR ---
GPS RN OPENING NOTE: RECEIVED PATIENT IN BED,RESTING. PT AOX2. ABLE TO MAKE NEEDS KNOWN. PT IS COMPLIANT WITH ACCUCHECK AND MEDICATION ADMINISTRATION. DENIES SI//HI AND VAH. PATIENT ATE FULL MEAL FOR BREAKFAST. ENVIRONMENTAL CHECKS DONE AND SAFETY PRECAUTIONS IN PLACE. WILL CONTINUE TO MONITOR PATIENT Q15 FOR MOOD, SAFETY AND BEHAVIOR
--- NOTE | 2019-09-18 11:32 | NUR ---
SNF Contact: SW called [facility] ([phone]) and was told by the customer advisor specialist that the admissions department were in a meeting and that the SW would get a call back.
--- NOTE | 2019-09-18 14:45 | NUR ---
SNF Contact: SW called [facility] ([phone]) and spoke to their Admissions who stated that the pt was not accepted to their facility due to aggressive behavior.
[2019-09-18 16:00] VITALS: BP 118/65
[2019-09-18 20:00] VITALS: BP 129/68
[2019-09-18] MEDS: ENOXAPARIN SODIUM 40 MG/0.4 ML DISP.SYRIN SQ SCH (21:00)
[2019-09-18] MEDS: SENNOSIDES 8.6 MG TABLET PO SCH (22:00)
[2019-09-18] MEDS: TAMSULOSIN 0.4 MG CAP.SR.24H PO SCH (22:00)
--- NOTE | 2019-09-19 04:25 | NUR ---
GPS RN NOTES PT REFUSED PM MEDICATIONS EXCEPT FOR ACCU CHEK AND INSULIN. TEACHING PROVIDED IN THE CONSEQUENCES OF NON COMPLIANCE WITH MEDICATION AND TREATMENT REGIMEN. WILL CONTINUE TO MONITOR AND ENDORSE TO AM NURSE.
--- NOTE | 2019-09-19 05:36 | NUR ---
GPS RN NOTE PT TO DC TODAY @ 11AM TO [facility].
[2019-09-19] MEDS: BLOOD SUGAR DIAGNOSTIC 1 EACH STRIP IN SCH ×2 (07:53→11:20)
[2019-09-19 08:00] VITALS: BP 121/78
[2019-09-19] MEDS: METFORMIN 500 MG TABLET PO SCH (08:09)
[2019-09-19] MEDS: MULTIVIT W/MINERALS 1 TAB TABLET PO SCH (08:09)
[2019-09-19] MEDS: HALOPERIDOL 5 MG TABLET PO SCH (08:09)
[2019-09-19] MEDS: BENZTROPINE MESYLATE (1 MG) 1 MG TABLET PO SCH (08:09)
[2019-09-19] MEDS: FINASTERIDE (5 MG) 5 MG TABLET PO SCH (08:09)
[2019-09-19] MEDS: acetaZOLAMIDE 250 MG TABLET PO SCH (08:09)
[2019-09-19] MEDS: DOCUSATE SODIUM 100 MG CAPSULE PO SCH (08:09)
[2019-09-19] MEDS: PANTOPRAZOLE 40 MG TABLET.DR PO SCH (08:09)
[2019-09-19] MEDS: LINAGLIPTIN 5 MG TABLET PO SCH (08:09)
[2019-09-19 08:10] VITALS: BP 121/65
[2019-09-19] MEDS: LISINOPRIL (5MG) 5 MG TABLET PO SCH (08:10)
[2019-09-19] MEDS: BICALUTAMIDE 50 MG TABLET PO SCH (08:11)
--- NOTE | 2019-09-19 08:28 | NUR ---
Family Contact: SW received a voicemail from the pts son, ([phone]), and called him back but was unable to make contact so the SW left a voicemail message.
--- NOTE | 2019-09-19 08:29 | NUR ---
Family Contact: SW called the pts , Low ([phone]), and informed her that the pt was not accepted to any other facility due to his "aggressive behavior" and stated that the MD here in the hospital would be following the pt to the facility and will continue to work with him. Pts stated that she accepted the placement.
--- NOTE | 2019-09-19 11:39 | NUR ---
GPS/RN - Discharge Note Atul Triplett is a 73 year old male, discharged to [facility] in stable condition. Reviewed discharge instructions with PATY Tang at [facility] ([phone]) and she verbalized full understanding. Patient compliant with medications, cooperative with treatment plan. Patient is alert and oriented x 2, wheelchair bound, denies pain, not in any form of distress, afebrile. Patient denies suicidal ideation or homicidal ideation, no c/o visual or auditory hallucinations at this time. Patient refused skin assessment and discharge pictures to be taken. Behavior improved, psychiatric treatment plans met, medical treatment plans deferred for continual monitoring. Medications reconciled with Dr. Scanlon and Dr. Faria. Patient signed his discharge paperwork. Returned all personal belongings to patient. Patient left the unit at 11:35 via ambulance. Low ([phone]) was aware of discharge.
--- NOTE | 2019-09-19 14:06 | NUR ---
Discharge Note: Pt was discharged to [facility] ([facility]) located at [address] [place] [address]; ([phone]). Pt was transported via [facility] at 11AM. Pts , Low ([phone]), was made aware of the placement. Upon discharge, the pt appeared to be in a euthymic mood and presented with a calm affect. Pt appeared to be oriented x4 (time, self, place and situation). Pt denied both suicidal and homicidal ideation as well as auditory and visual hallucinations. Pt will follow up with psychiatrist, Dr. Faria, located at [address] [facility], [address] [place] [address]; and parts processor, Dr. Denis, located at [address] [place] [address]; .
== END 2019-09-19 11:35 | DRG 885 ==
LOC: ER 18:42 → GPS 09-10 14:19
PROVIDERS: ADMIT Psychiatry & Neurology Psychiatry; ATTEND Nurse Practitioner Acute Care
DX: F20.0 Paranoid schizophrenia (principal); E11.65 Type 2 diabetes mellitus with hyperglycemia; H40.9 Unspecified glaucoma; I10 Essential (primary) hypertension; Z85.46 Personal history of malignant neoplasm of prostate; E78.5 Hyperlipidemia, unspecified; K21.9 Gastro-esophageal reflux disease without esophagitis; Z73.6 Limitation of activities due to disability; F29 Unspecified psychosis not due to a substance or known physiological condition; Z79.4 Long term (current) use of insulin
CPT/HCPCS: 36415; 80048-TC; 80053-TC; 80061-TC; 80076-TC; 82962-TC; 85025-TC; 87081-TC; 97530-TC; G0480; J1631; J1650; J1815; J2060; J3490; J7030

== ENCOUNTER 2022-05-12 13:18 | Inpatient (IN) | payer MEDICARE, OTHER ==
[~2022-05-12] VITALS: Ht 170.2 cm; Wt 81.6 kg
[~2022-05-12 13:18] MED LIST changes: -BRIM5DRO3 EACHEYE; -CANA300T PO; -CLOT15CR63 TP; +FINA5TAB11 PO; -GEMF600T5 PO; +INSU100V42 SQ; +MAG30ORA PO; -MIDO5TAB4 PO; +SENN-261 PO; -TRAZ-182 PO
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
--- NOTE | 2022-05-12 14:00 | NUR ---
REFUSED BLOOD TO DROW
[2022-05-12] MEDS ORDERED: HALO0.5T2 PO (14:26)
[2022-05-12] MEDS ORDERED: GLIP5TAB13 PO (14:26)
[2022-05-12] MEDS ORDERED: MELA5TAB PO (14:26)
[2022-05-12] MEDS ORDERED: NETA2.5D LEFTEYE (14:26)
[2022-05-12] MEDS ORDERED: LATA2.5D15 EACHEYE (14:26)
[2022-05-12] MEDS ORDERED: DORZ10DR11 LEFTEYE (14:26)
[2022-05-12] MEDS ORDERED: HALO2TAB2 PO (14:26)
[2022-05-12] MEDS ORDERED: BRIM5DRO11 LEFTEYE (14:26)
[2022-05-12] MEDS ORDERED: DIVA500T2 PO (14:26)
[2022-05-12] MEDS ORDERED: FAMO-131 PO (14:26)
[2022-05-12] MEDS ORDERED: MIRT-90 PO (14:26)
[2022-05-12] MEDS ORDERED: INSU100V30 IJ (14:26)
[2022-05-12] MEDS ORDERED: CHOL200013 PO (14:26)
[2022-05-12] MEDS ORDERED: POLY17PO4 PO (14:26)
--- NOTE | 2022-05-12 15:06 | NUR ---
THALIA HYMAN SENT BY AAMIR NEWMAN
[2022-05-12 15:11] LABS: BASOPHILS % (AUTO) 0.4 % (0.0-2.0); HEMATOCRIT 37 % (39-51); LYMPHOCYTES % (AUTO) 26.6 % (20.0-44.0); MEAN CORPUSCULAR HGB CONC 32 g/dl (31.0-36.0); MEAN CORPUSCULAR VOLUME 84 fL (80-96); MONOCYTES # (AUTO) 0.8 K/uL (0.1-1.30); MONOCYTES % (AUTO) 10.7 % (2.0-12.0); NEUTROPHILS # (AUTO) 4.6 K/uL (1.8-8.9); NEUTROPHILS % (AUTO) 60.3 % (43.0-81.0); PLATELET COUNT (AUTO) 280 K/uL (150-450); RED BLOOD CELL COUNT(AUTO) 4.43 MIL/uL (4.5-6.0); WHITE BLOOD COUNT (AUTO) 7.7 K/uL (4.3-11.0)
[2022-05-12 16:22] LABS: CALCIUM, SERUM 9.1 mg/dL (8.5-10.1); CARBON DIOXIDE 27 mmol/L (21-32); CHLORIDE 99 mmol/L (98-107); CREATININE 1.4 mg/dL (0.6-1.3); POTASSIUM 4.4 mmol/L (3.5-5.1); SODIUM SERUM 132 mmol/L (136-145); UREA NITROGEN, BLOOD 15 mg/dL (7-18)
[2022-05-12 16:27] LABS: ALANINE AMINOTRANSFERASE 18 U/L (12-78); ALBUMIN 3.2 g/dL (3.4-5.0); ALCOHOL, BLOOD < 3 mg/dL (0-0); ALKALINE PHOSPHATASE 142 U/L (46-116); ASPARTATE AMINOTRANSFERASE 14 U/L (15-37); BILIRUBIN,DIRECT 0.1 mg/dL (0.0-0.2); BILIRUBIN,TOTAL 0.5 mg/dL (0.2-1.0); TOTAL PROTEIN, SERUM 6.9 g/dL (6.4-8.2)
[2022-05-12 16:29] LABS: GLUCOSE 464 mg/dL (74-106)
[2022-05-12 16:30] LABS: ACETAMINOPHEN 0 ug/ml (10-30)
--- NOTE | 2022-05-12 16:38 | NUR ---
REsting and asleepy no pain
[2022-05-12] MEDS ORDERED: DEXTROSE 50%-WATER 50 ML DISP.SYRIN IV PRN (17:30)
[2022-05-12] MEDS: BLOOD SUGAR DIAGNOSTIC 1 EACH STRIP VI SCH ×2 (18:00→22:00)
[2022-05-12] MEDS: LATANOPROST EYE DROP 0.005% 2.5 ML BOTTLE EACHEYE SCH (18:00)
--- NOTE | 2022-05-12 18:04 | NUR ---
CALLED LABORATORY SAMPLER LAURA [phone] AND LEFT .
--- NOTE | 2022-05-12 18:17 | NUR ---
ACCUCHECK DONE 333MG/LD INSULIN WAS GIVEN As SLIDING SCALE
--- NOTE | 2022-05-12 18:35 | NUR ---
CALLED DEAF/HARD OF HEARING SPECIALIST LAURA [phone] AND LEFT .
--- NOTE | 2022-05-12 18:45 | NUR ---
GOT BED 213-B.
[2022-05-12] MEDS: INSULIN REGULAR, HUMAN 100 UNIT/ML 3 ML VIAL SQ PRN (18:58)
[2022-05-12 19:06] LABS: BILIRUBIN,URINE NEGATIVE (NEGATIVE); COLOR,URINE YELLOW (YELLOW); LEUKOCYTE ESTERASE ,URINE NEGATIVE (NEGATIVE); NITRITE, URINE NEGATIVE (NEGATIVE); PROTEIN,URINE NEGATIVE (NEGATIVE); UGLUCOSE >=1000 mg/dL (NEGATIVE); UROBILINOGEN,URINE 0.2 EU/dL (0.2)
--- NOTE | 2022-05-12 19:06 | NUR ---
RECEIVED CALL BACK FROM HAND FORMER HELPER LAURA.
[2022-05-12 19:20] LABS: BACTERIA,URINE None seen /HPF (None Seen); RBC,URINE 0-2 /HPF (0-2); SQUAMOUS EPITHELIAL CELL,UR 0-2 /HPF (None Seen); WBC,URINE 0-2 /HPF (0-3)
--- NOTE | 2022-05-12 19:25 | NUR ---
HAND OFF JASWANT NEWMAN
[2022-05-12] MEDS: TAMSULOSIN 0.4 MG CAP.SR.24H PO SCH (22:00)
[2022-05-12] MEDS ORDERED: Medication Not On Formulary EA (Netarsudil Mesylate (Rhopressa) 1 DROP) LEFTEYE SCH (22:00)
[2022-05-12] MEDS: SENNOSIDES 8.6 MG TABLET PO SCH (22:00)
--- NOTE | 2022-05-12 22:33 | NUR ---
REPORT GIVEN TO GRETCHEN GARCIA RN FOR FAINA
--- NOTE | 2022-05-12 22:49 | NUR ---
PT TRANSFERRED TO [facility]. VSS. ALL BELONGINGS WITH PT.
[2022-05-12] MEDS ORDERED: MAG HYDROX/AL HYDROX/SIMETH 30 ML UDC PO PRN (23:30)
[2022-05-12] MEDS ORDERED: LORAZEPAM 0.5 MG TABLET PO PRN (23:30)
[2022-05-12] MEDS ORDERED: ACETAMINOPHEN 325 MG TABLET PO PRN (23:30)
[2022-05-12] MEDS ORDERED: MAGNESIUM HYDROXIDE 30 ML UDC PO PRN (23:30)
--- NOTE | 2022-05-13 00:42 | NUR ---
RN NOTES: REFUSED SKIN ASSESSMENT PT. REFUSED SKIN ASSESSMENT DUE TO UNCOOPERTIVE, AGGRESSIVE, NON REDIRECTABLE, ENCOURAGED X 3 PT. STRONGLY REFUSED, PER PT. STATED MY SKIN IS FINE PT. REUSED ACCU CHECK PT. REFUSED ACCU CHECK DUE TO UNCOOPERTIVE, AGGRESSIVE, NON REDIRECTABLE, ENCOURAGED X 3 PT. STRONGLY REFUSED, PER PT. MY BLOOD BS IS FINE, NO NEEDS TO BE CHECK.
--- NOTE | 2022-05-13 00:47 | NUR ---
RN NOTE: PT. REUSED ACCU CHECK PT. REFUSED ACCU CHECK DUE TO UNCOOPERTIVE, AGGRESSIVE, NON REDIRECTABLE, ENCOURAGED X 3 PT. STRONGLY REFUSED, PER PT. MY BLOOD BS IS FINE, NO NEEDS TO BE CHECK.
[2022-05-13 01:25] VITALS: BP 132/80
--- NOTE | 2022-05-13 01:47 | NUR ---
RN NOTES : ADMISSION NOTES: ADMITTED THIS 76Y/O MALE PATIENT ADMIT FROM [facility] , INITIALLY FROM [facility]. ADMITTED TO 5150 HOLD PER HOLD GD DTO.DUE SUDDEN OUT GEOFF OF AGITATION,HITTING STAFF AND REFUSING HIS MEDS, UPON FACE TO FACE ASSESSMENT PATIENT IS A&O 3 DEPRESSED ,EASILY AGITATED ,DISORGNIZED, DISHELVED, UNCOOPERTIVE,POOR DECISION MAKING,DENIES SI /HI AT THIS TIME, PT. IS POOR HISTORIAN, POOR INSIGHT ,POOR JUDGEMENT , BOTH MD AWARE AND NOTIFIED OF THE ADMISSION, BELONGINGS CONTRABAND WERE DONE , PT. REFUSED SIGNS ADMISSION CONSENT PAPER DUE TO ANXIOUS,ENCOURAGED PT. TO TAKE SHOWER, REFUSED SKIN ASSESSMENT AND BLOOD SUGAR CHECK ,ENCOURAGED X3 BUT PT. STRONGLY REFUSED, PT. RIGHTS DISCUSS BY BINDERY ASSISTANT , PROVIDE THE PT. WITH HANDBOOK, AND MEDICATIONS GUIDE, ENVIRONMENTAL SAFETY CHECK DONE, ENCOURAGED PT. VERBALIZED ANY FEELING CONCERN TO STAFF, ORIENT TO UNIT POLICY, NO ACUTE DISTRESS NOTED,VITAL SIGNS WNL ,DENIES ANY PAIN AT THIS TIME,WILL CONTINUE TO MONITOR FOR Q15 SAFETY AND BEHAVIOR.
[2022-05-13] MEDS ORDERED: Z GUARD REMEDY 4 OZ OINT TP PRN (03:30)
--- NOTE | 2022-05-13 06:58 | NUR ---
RN NOTE: CALLED RICKIEOSVALDO LOZANORHONDA( ) AT [phone], AND NOTIFIED PATIENT'S ADMITTED AT [facility] UNIT.
[2022-05-13] MEDS: BLOOD SUGAR DIAGNOSTIC 1 EACH STRIP VI SCH ×4 (07:30→22:00)
[2022-05-13] MEDS: PANTOPRAZOLE 40 MG TABLET.DR PO SCH (07:30)
[2022-05-13 08:00] VITALS: BP 137/77
[2022-05-13] MEDS: DOCUSATE SODIUM 100 MG CAPSULE PO SCH ×2 (09:00→17:00)
[2022-05-13] MEDS: glipiZIDE 5 MG TABLET PO SCH (09:00)
[2022-05-13] MEDS: FINASTERIDE (5 MG) 5 MG TABLET PO SCH (09:00)
[2022-05-13] MEDS: BRIMONIDINE TARTRATE OPHT SOLN 5 ML BOTTLE LEFTEYE SCH ×3 (09:00→17:00)
[2022-05-13] MEDS: METFORMIN 500 MG TABLET PO SCH ×2 (09:00→17:00)
[2022-05-13] MEDS: Z GUARD REMEDY 4 OZ OINT TP SCH (09:00)
[2022-05-13] MEDS: acetaZOLAMIDE 250 MG TABLET PO SCH (09:00)
[2022-05-13] MEDS: FAMOTIDINE (20 MG) 20 MG TABLET PO SCH (09:00)
[2022-05-13] MEDS: CHOLECALCIFEROL 1,000 UNIT TABLET (VIT D3) PO SCH (09:00)
[2022-05-13] MEDS: TIMOLOL MAL/DORZOLAM HCL OPHTH 10 ML BOTTLE LEFTEYE SCH (09:00)
[2022-05-13] MEDS: MULTIVIT W/MINERALS 1 TAB TABLET PO SCH (09:00)
[2022-05-13] MEDS: POLYETHYLENE GLYCOL 3350 17 GM POWD.PACK PO SCH (09:00)
--- NOTE | 2022-05-13 09:19 | NUR ---
RODY Clinical Note: Pt placed on a 5150 hold for danger to others and GD. Per hold, it states that pt was aggressive towards staff at the facility. Patient currently resides at [facility] located at [address] [place] [address]; ([phone]). RODY contacted [facility] and spoke with Neil lisa ([phone]) who stated pt is welcomed back. RODY will work with the MD, family, and pt to help coordinate appropriate discharge.
--- NOTE | 2022-05-13 09:19 | NUR ---
RODY Initial Discharge Note: Patient currently resides at [facility] located at [address] [place] [address]; ([phone]). RODY contacted [facility] and spoke with Neil lisa ([phone]) who stated pt is welcomed back. RODY will work with the MD, family, and pt to help coordinate appropriate discharge.
--- NOTE | 2022-05-13 09:20 | NUR ---
Treatment Plan: Pt refused to sign treatment plan and was labile.
--- NOTE | 2022-05-13 10:21 | NUR ---
GPS/RN PT REFUSED ACCUCHECK OFFERED X3. PT REFUSED AM MEDS AND PT EVALUATION.
--- NOTE | 2022-05-13 11:37 | NUR ---
RODY Family Contact: SW attempted to contact pt's Low ([phone]) who stated that she does not speak Uruguayan well and would prefer for this ghost writer to contact daughter Ness ([phone]). SW attempted to contact pt's daughter Ness ([phone]) and discussed patient's discharge/treatment plan. She would want pt back to [facility] when pt is stable.
[2022-05-13] MEDS: INSULIN REGULAR, HUMAN 100 UNIT/ML 3 ML VIAL SQ PRN ×2 (13:40→17:41)
[2022-05-13 16:00] VITALS: BP 131/79
[2022-05-13] MEDS: LATANOPROST EYE DROP 0.005% 2.5 ML BOTTLE EACHEYE SCH (17:45)
[2022-05-13 20:00] VITALS: BP 142/78
--- NOTE | 2022-05-13 20:38 | NUR ---
RN NOTES: PATIENT RESTING IN ROOM, NO S/SX OF ACUTE DISTRESS NOTED. PATIENT GUARDED, EASILY AGITATED, ANXIOUS,UNCOOPERATIVE, DISORGANIZED,GIVING INAPPROPRIATE ANSWER TO QUESTIONS, PARANOID, NEEDS FREQUENT REDIRECTION. NON COMPLIANT WITH CARE AND MEDS.ENCOURAGE TO VERBALIZED ANY FEELING OR CONCERN, SAFETY MEASURES IN PLACE. WILL CONTINUE TO MONITOR Q15MIN ROUNDS FOR SAFETY AND BEHAVIOR.
[2022-05-13] MEDS: TAMSULOSIN 0.4 MG CAP.SR.24H PO SCH (22:00)
[2022-05-13] MEDS: SENNOSIDES 8.6 MG TABLET PO SCH (22:00)
--- NOTE | 2022-05-13 22:14 | NUR ---
RN NOTES:PT. REFUSED NIGHT SCHEDULE MEDICATION FLOMAX 0.4 MG, SENOKOT 8.6 MG , ACCU CHECK, DUE TO UNCOOPERTIVE, AGGRESSIVE, NON REDIRECTABLE, ENCOURAGED X 3 PT. STRONGLY REFUSED, PER PT.STATES GET OUT OF FROM HERE .
--- NOTE | 2022-05-13 22:15 | NUR ---
RN NOTE:PT. REFUSED ACCU CHECK DUE TO UNCOOPERTIVE, AGGRESSIVE, NON REDIRECTABLE, ENCOURAGED X 3 PT. STRONGLY REFUSED, PER PT. STATES GET OUT OF FROM HERE, NO NEEDS TO BE CHECK.
[2022-05-14] MEDS: PANTOPRAZOLE 40 MG TABLET.DR PO SCH (07:30)
[2022-05-14 08:00] VITALS: BP 116/63
[2022-05-14] MEDS: BLOOD SUGAR DIAGNOSTIC 1 EACH STRIP VI SCH ×4 (08:19→21:08)
[2022-05-14] MEDS: BRIMONIDINE TARTRATE OPHT SOLN 5 ML BOTTLE LEFTEYE SCH ×3 (08:52→17:00)
[2022-05-14] MEDS: DOCUSATE SODIUM 100 MG CAPSULE PO SCH ×2 (08:53→17:00)
[2022-05-14] MEDS: acetaZOLAMIDE 250 MG TABLET PO SCH (08:53)
[2022-05-14] MEDS: glipiZIDE 5 MG TABLET PO SCH (08:53)
[2022-05-14] MEDS: FAMOTIDINE (20 MG) 20 MG TABLET PO SCH (08:53)
[2022-05-14] MEDS: METFORMIN 500 MG TABLET PO SCH ×2 (08:53→17:39)
[2022-05-14] MEDS: TIMOLOL MAL/DORZOLAM HCL OPHTH 10 ML BOTTLE LEFTEYE SCH (08:53)
[2022-05-14] MEDS: POLYETHYLENE GLYCOL 3350 17 GM POWD.PACK PO SCH (08:53)
[2022-05-14] MEDS: Z GUARD REMEDY 4 OZ OINT TP SCH (08:54)
[2022-05-14] MEDS: MULTIVIT W/MINERALS 1 TAB TABLET PO SCH (08:54)
[2022-05-14] MEDS: CHOLECALCIFEROL 1,000 UNIT TABLET (VIT D3) PO SCH (08:54)
[2022-05-14] MEDS: FINASTERIDE (5 MG) 5 MG TABLET PO SCH (08:54)
--- NOTE | 2022-05-14 08:54 | NUR ---
GPSSS/RN ACCUCHECK WITH QO=345. PT REFUSED INSULIN COVERAGE AND REFUSED AM MEDS OFFERED X3. PT WAS BELLIGERENT AND USED FOUL LANGUAGE
[2022-05-14] MEDS: INSULIN REGULAR, HUMAN 100 UNIT/ML 3 ML VIAL SQ PRN (12:34)
[2022-05-14] MEDS: DIVALPROEX SODIUM 125 MG CAP.SPRINK PO SCH ×2 (12:35→17:39)
[2022-05-14] MEDS: HALOPERIDOL 5 MG TABLET PO SCH ×2 (12:35→17:39)
[2022-05-14 12:57] LABS: BASOPHILS % (AUTO) 0.3 % (0.0-2.0); EOSINOPHILS % (AUTO) 1.9 % (0.0-6.0); HEMATOCRIT 36 % (39-51); HEMOGLOBIN 11.8 g/dL (13.5-17.5); LYMPHOCYTES # (AUTO) 1.3 K/uL (0.8-4.8); LYMPHOCYTES % (AUTO) 17.5 % (20.0-44.0); MEAN CORPUSCULAR HGB CONC 33 g/dl (31.0-36.0); MEAN CORPUSCULAR VOLUME 84 fL (80-96); MONOCYTES # (AUTO) 0.6 K/uL (0.1-1.30); MONOCYTES % (AUTO) 7.8 % (2.0-12.0); NEUTROPHILS # (AUTO) 5.2 K/uL (1.8-8.9); NEUTROPHILS % (AUTO) 72.5 % (43.0-81.0); PLATELET COUNT (AUTO) 258 K/uL (150-450); RED BLOOD CELL COUNT(AUTO) 4.32 MIL/uL (4.5-6.0); WHITE BLOOD COUNT (AUTO) 7.2 K/uL (4.3-11.0)
[2022-05-14 13:15] LABS: CREATININE 1.1 mg/dL (0.6-1.3); POTASSIUM 4.4 mmol/L (3.5-5.1)
[2022-05-14 16:00] VITALS: BP 137/73
[2022-05-14] MEDS: LATANOPROST EYE DROP 0.005% 2.5 ML BOTTLE EACHEYE SCH (17:42)
--- NOTE | 2022-05-14 17:42 | NUR ---
GPS/RN PT REFUSED ACCUCHECK OFFERED X3
[2022-05-14 20:52] VITALS: BP 145/64
[2022-05-14] MEDS: TAMSULOSIN 0.4 MG CAP.SR.24H PO SCH (21:08)
[2022-05-14] MEDS: SENNOSIDES 8.6 MG TABLET PO SCH (21:08)
[2022-05-14] MEDS: INSULIN GLARGINE, 100 UNIT/ML CARTRIDGE SQ SCH (21:21)
[2022-05-14] MEDS: *INSULIN REGULAR(HUMULIN R)HUM 100 UNIT/ML VIAL SQ PRN (21:23)
[2022-05-15] MEDS: PANTOPRAZOLE 40 MG TABLET.DR PO SCH (07:30)
[2022-05-15] MEDS: BLOOD SUGAR DIAGNOSTIC 1 EACH STRIP VI SCH ×4 (07:30→21:58)
--- NOTE | 2022-05-15 07:47 | NUR ---
GPS/RN PT REFUSED VS TAKEN AND REFUSED ACCUCHECK. OFFERED X 3
[2022-05-15] MEDS: DIVALPROEX SODIUM 125 MG CAP.SPRINK PO SCH ×3 (08:51→18:05)
[2022-05-15] MEDS: METFORMIN 500 MG TABLET PO SCH ×2 (08:51→18:05)
[2022-05-15] MEDS: glipiZIDE 5 MG TABLET PO SCH (08:51)
[2022-05-15] MEDS: HALOPERIDOL 5 MG TABLET PO SCH ×3 (08:51→18:07)
[2022-05-15] MEDS: acetaZOLAMIDE 250 MG TABLET PO SCH (09:00)
[2022-05-15] MEDS: DOCUSATE SODIUM 100 MG CAPSULE PO SCH ×2 (09:00→17:00)
[2022-05-15] MEDS: CHOLECALCIFEROL 1,000 UNIT TABLET (VIT D3) PO SCH (09:00)
[2022-05-15] MEDS: BRIMONIDINE TARTRATE OPHT SOLN 5 ML BOTTLE LEFTEYE SCH ×3 (09:00→17:00)
[2022-05-15] MEDS: Z GUARD REMEDY 4 OZ OINT TP SCH (09:00)
[2022-05-15] MEDS: MULTIVIT W/MINERALS 1 TAB TABLET PO SCH (09:00)
[2022-05-15] MEDS: FINASTERIDE (5 MG) 5 MG TABLET PO SCH (09:00)
[2022-05-15] MEDS: POLYETHYLENE GLYCOL 3350 17 GM POWD.PACK PO SCH (09:00)
[2022-05-15] MEDS: FAMOTIDINE (20 MG) 20 MG TABLET PO SCH (09:00)
[2022-05-15] MEDS: TIMOLOL MAL/DORZOLAM HCL OPHTH 10 ML BOTTLE LEFTEYE SCH (09:00)
[2022-05-15] MEDS: INSULIN REGULAR, HUMAN 100 UNIT/ML 3 ML VIAL SQ PRN (12:15)
[2022-05-15 15:58] VITALS: BP 129/70
[2022-05-15] MEDS: LATANOPROST EYE DROP 0.005% 2.5 ML BOTTLE EACHEYE SCH (18:00)
--- NOTE | 2022-05-15 18:50 | NUR ---
GPS/RN PT REFUSED 1730 ACCUCHECK. OFFERED X 3. PT WAS SELECTIVE WITH 1700 MEDS
[2022-05-15 20:16] VITALS: BP 126/53
[2022-05-15] MEDS: TAMSULOSIN 0.4 MG CAP.SR.24H PO SCH (21:54)
[2022-05-15] MEDS: SENNOSIDES 8.6 MG TABLET PO SCH (21:54)
[2022-05-15] MEDS: INSULIN GLARGINE, 100 UNIT/ML CARTRIDGE SQ SCH (21:59)
[2022-05-15] MEDS: *INSULIN REGULAR(HUMULIN R)HUM 100 UNIT/ML VIAL SQ PRN (22:00)
--- NOTE | 2022-05-15 22:30 | NUR ---
Pt compliant with care and compliant with all PM meds and tolerated well. BS check done as ordered with Insulin sliding scale. No s/s of hypo/hyperglycemia. No c/o pain or discomfort during shift. Respiration even and unlabored without s/s of any kind of distress. Kept clean, dry and comfortable. Frequent visual check done for safety. Will continue to monitor.
[2022-05-16] MEDS: PANTOPRAZOLE 40 MG TABLET.DR PO SCH (07:44)
[2022-05-16 08:00] VITALS: BP_SYST 104; BP_SYST 120; BP_DIAS 54
[2022-05-16] MEDS: BLOOD SUGAR DIAGNOSTIC 1 EACH STRIP VI SCH ×4 (08:22→21:51)
[2022-05-16] MEDS: POLYETHYLENE GLYCOL 3350 17 GM POWD.PACK PO SCH (08:23)
[2022-05-16] MEDS: HALOPERIDOL 5 MG TABLET PO SCH ×3 (08:23→17:15)
[2022-05-16] MEDS: FAMOTIDINE (20 MG) 20 MG TABLET PO SCH (08:23)
[2022-05-16] MEDS: DIVALPROEX SODIUM 125 MG CAP.SPRINK PO SCH ×3 (08:24→17:15)
[2022-05-16] MEDS: DOCUSATE SODIUM 100 MG CAPSULE PO SCH ×2 (08:24→17:15)
[2022-05-16] MEDS: glipiZIDE 5 MG TABLET PO SCH (08:24)
[2022-05-16] MEDS: CHOLECALCIFEROL 1,000 UNIT TABLET (VIT D3) PO SCH (08:24)
[2022-05-16] MEDS: MULTIVIT W/MINERALS 1 TAB TABLET PO SCH (08:25)
[2022-05-16] MEDS: METFORMIN 500 MG TABLET PO SCH ×2 (08:25→17:15)
[2022-05-16] MEDS: Z GUARD REMEDY 4 OZ OINT TP SCH (08:25)
[2022-05-16] MEDS: acetaZOLAMIDE 250 MG TABLET PO SCH (08:52)
[2022-05-16] MEDS: FINASTERIDE (5 MG) 5 MG TABLET PO SCH (08:53)
[2022-05-16] MEDS: TIMOLOL MAL/DORZOLAM HCL OPHTH 10 ML BOTTLE LEFTEYE SCH (08:53)
[2022-05-16] MEDS: BRIMONIDINE TARTRATE OPHT SOLN 5 ML BOTTLE LEFTEYE SCH ×3 (08:53→17:20)
[2022-05-16] MEDS: *INSULIN REGULAR(HUMULIN R)HUM 100 UNIT/ML VIAL SQ PRN ×3 (08:55→21:33)
[2022-05-16] MEDS: LATANOPROST EYE DROP 0.005% 2.5 ML BOTTLE EACHEYE SCH (17:15)
[2022-05-16] MEDS: INSULIN REGULAR, HUMAN 100 UNIT/ML 3 ML VIAL SQ PRN (18:44)
[2022-05-16 20:02] VITALS: BP 139/71
[2022-05-16] MEDS: TAMSULOSIN 0.4 MG CAP.SR.24H PO SCH (21:12)
[2022-05-16] MEDS: SENNOSIDES 8.6 MG TABLET PO SCH (21:12)
[2022-05-16] MEDS: INSULIN GLARGINE, 100 UNIT/ML CARTRIDGE SQ SCH (21:33)
[2022-05-17] MEDS: PANTOPRAZOLE 40 MG TABLET.DR PO SCH (06:54)
[2022-05-17 08:00] VITALS: BP 133/78
[2022-05-17] MEDS: BLOOD SUGAR DIAGNOSTIC 1 EACH STRIP VI SCH ×4 (08:18→21:56)
[2022-05-17] MEDS: POLYETHYLENE GLYCOL 3350 17 GM POWD.PACK PO SCH (08:49)
[2022-05-17] MEDS: DOCUSATE SODIUM 100 MG CAPSULE PO SCH ×2 (08:50→17:04)
[2022-05-17] MEDS: MULTIVIT W/MINERALS 1 TAB TABLET PO SCH (08:50)
[2022-05-17] MEDS: DIVALPROEX SODIUM 125 MG CAP.SPRINK PO SCH ×3 (08:50→17:04)
[2022-05-17] MEDS: METFORMIN 500 MG TABLET PO SCH ×2 (08:50→17:04)
[2022-05-17] MEDS: CHOLECALCIFEROL 1,000 UNIT TABLET (VIT D3) PO SCH (08:50)
[2022-05-17] MEDS: FINASTERIDE (5 MG) 5 MG TABLET PO SCH (08:50)
[2022-05-17] MEDS: FAMOTIDINE (20 MG) 20 MG TABLET PO SCH (08:51)
[2022-05-17] MEDS: glipiZIDE 5 MG TABLET PO SCH (08:51)
[2022-05-17] MEDS: HALOPERIDOL 5 MG TABLET PO SCH ×3 (08:51→17:04)
[2022-05-17] MEDS: acetaZOLAMIDE 250 MG TABLET PO SCH (08:55)
[2022-05-17] MEDS: TIMOLOL MAL/DORZOLAM HCL OPHTH 10 ML BOTTLE LEFTEYE SCH (09:00)
[2022-05-17] MEDS: BRIMONIDINE TARTRATE OPHT SOLN 5 ML BOTTLE LEFTEYE SCH ×3 (09:01→17:26)
[2022-05-17] MEDS: Z GUARD REMEDY 4 OZ OINT TP SCH (09:01)
[2022-05-17 16:01] VITALS: BP 114/53
[2022-05-17] MEDS: LATANOPROST EYE DROP 0.005% 2.5 ML BOTTLE EACHEYE SCH (17:26)
--- NOTE | 2022-05-17 18:54 | NUR ---
RN-NOTES PATIENT IN BED AWAKE A/O X2,GUARDED,NO ACUTE DISTRESS NOTED.PATIENT REFUSED GROUPS,PREFERS TO STAY IN THE ROOM AND REST. COMPLIANT WITH MEDICATIONS.NEEDS MINIMAL ASSIST WITH ADL'S. PATIENT ABLE TO USE COMMODE NEXT TO HIS BED.ALL NEEDS ATTENDED AND ANTICIPATED. WILL CONT. MONITORING FOR SAFETY AND BEHAVIOR.WILL ENDORSE TO INCOMING NURSE FOR CONTINUITY OF CARE.
--- NOTE | 2022-05-17 19:30 | NUR ---
GPS RN NOTES: RECEIVED PATIENT RESTING IN ROOM, NO S/SX OF ACUTE DISTRESS NOTED. A/O X2, ON RA TOLERATING WELL, PATIENT GUARDED, EASILY AGITATED, ANXIOUS,UNCOOPERATIVE, DISORGANIZED, GIVING INAPPROPRIATE ANSWER TO QUESTIONS, PARANOID, NEEDS FREQUENT REDIRECTION. ENCOURAGE TO VERBALIZED ANY FEELING OR CONCERN, SAFETY MEASURES IN PLACE. WILL CONTINUE TO MONITOR Q15MIN ROUNDS FOR SAFETY AND BEHAVIOR.
[2022-05-17 20:11] VITALS: BP 103/62
[2022-05-17] MEDS: TEMAZEPAM 7.5 MG CAPSULE PO PRN (20:30)
--- NOTE | 2022-05-17 20:30 | NUR ---
RN NOTE PT REQUESTED SLEEPING PILL TO HELP HIM SLEEP AT NIGHT PRN MEDS GIVEN MD ORDERED. PT TOLERATED WELL. WILL CONT TO MONITOR.
[2022-05-17] MEDS: TAMSULOSIN 0.4 MG CAP.SR.24H PO SCH (21:04)
[2022-05-17] MEDS: SENNOSIDES 8.6 MG TABLET PO SCH (21:04)
[2022-05-17] MEDS: INSULIN GLARGINE, 100 UNIT/ML CARTRIDGE SQ SCH (21:53)
--- NOTE | 2022-05-17 22:00 | NUR ---
RN NOTE BS CHECKED AT 114 MG/DL, NO COVERAGE GIVEN PER SLIDING SCALE. SCHEDULED LANTUS GIVEN ORDERED.
[2022-05-18] MEDS: PANTOPRAZOLE 40 MG TABLET.DR PO SCH (07:55)
[2022-05-18] MEDS: BLOOD SUGAR DIAGNOSTIC 1 EACH STRIP VI SCH ×4 (07:56→22:00)
[2022-05-18 08:00] VITALS: BP 109/55
[2022-05-18] MEDS: DIVALPROEX SODIUM 125 MG CAP.SPRINK PO SCH ×4 (08:44→17:43)
[2022-05-18] MEDS: HALOPERIDOL 5 MG TABLET PO SCH ×4 (08:45→17:43)
[2022-05-18] MEDS: MULTIVIT W/MINERALS 1 TAB TABLET PO SCH (08:45)
[2022-05-18] MEDS: METFORMIN 500 MG TABLET PO SCH ×3 (08:45→17:44)
[2022-05-18] MEDS: DOCUSATE SODIUM 100 MG CAPSULE PO SCH ×3 (08:46→17:43)
[2022-05-18] MEDS: CHOLECALCIFEROL 1,000 UNIT TABLET (VIT D3) PO SCH (08:46)
[2022-05-18] MEDS: glipiZIDE 5 MG TABLET PO SCH (08:46)
[2022-05-18] MEDS: FINASTERIDE (5 MG) 5 MG TABLET PO SCH (08:47)
[2022-05-18] MEDS: POLYETHYLENE GLYCOL 3350 17 GM POWD.PACK PO SCH (08:47)
[2022-05-18] MEDS: FAMOTIDINE (20 MG) 20 MG TABLET PO SCH (08:47)
[2022-05-18] MEDS: acetaZOLAMIDE 250 MG TABLET PO SCH (09:03)
[2022-05-18] MEDS: BRIMONIDINE TARTRATE OPHT SOLN 5 ML BOTTLE LEFTEYE SCH ×4 (09:04→17:47)
[2022-05-18] MEDS: TIMOLOL MAL/DORZOLAM HCL OPHTH 10 ML BOTTLE LEFTEYE SCH (09:04)
[2022-05-18] MEDS: Z GUARD REMEDY 4 OZ OINT TP SCH (09:05)
--- NOTE | 2022-05-18 09:11 | NUR ---
Court Notification: SW attempted to contact pt's daughter Ness ([phone]) and left a voicemail of pt's 8990 hearing today.
--- NOTE | 2022-05-18 14:07 | NUR ---
Court Hearing: Patient's Court hearing for 9730 was today and it was upheld for GD.
[2022-05-18] MEDS: INSULIN REGULAR, HUMAN 100 UNIT/ML 3 ML VIAL SQ PRN (14:37)
[2022-05-18 16:00] VITALS: BP 116/78
[2022-05-18] MEDS: LATANOPROST EYE DROP 0.005% 2.5 ML BOTTLE EACHEYE SCH ×2 (17:47→18:00)
--- NOTE | 2022-05-18 18:00 | NUR ---
NURSE NOTE: ATTEMPTED TO GIVE PT MEDS. PT BECAME COMBATIVE CALLING ME NAMES AND REFUSING MEDICATION AT THIS TIME. WILL CONT TO MONITOR.
[2022-05-18] MEDS: TEMAZEPAM 7.5 MG CAPSULE PO PRN (21:33)
[2022-05-18] MEDS: TAMSULOSIN 0.4 MG CAP.SR.24H PO SCH (21:33)
[2022-05-18] MEDS: SENNOSIDES 8.6 MG TABLET PO SCH (21:33)
[2022-05-18] MEDS: INSULIN GLARGINE, 100 UNIT/ML CARTRIDGE SQ SCH (22:00)
[2022-05-18] MEDS: *INSULIN REGULAR(HUMULIN R)HUM 100 UNIT/ML VIAL SQ PRN (22:20)
[2022-05-19] MEDS: PANTOPRAZOLE 40 MG TABLET.DR PO SCH (07:30)
[2022-05-19] MEDS: BLOOD SUGAR DIAGNOSTIC 1 EACH STRIP VI SCH ×4 (07:30→21:52)
[2022-05-19] MEDS: METFORMIN 500 MG TABLET PO SCH ×2 (09:00→17:23)
[2022-05-19] MEDS: HALOPERIDOL 5 MG TABLET PO SCH ×3 (09:00→17:23)
[2022-05-19] MEDS: FAMOTIDINE (20 MG) 20 MG TABLET PO SCH (09:00)
[2022-05-19] MEDS: acetaZOLAMIDE 250 MG TABLET PO SCH (09:00)
[2022-05-19] MEDS: POLYETHYLENE GLYCOL 3350 17 GM POWD.PACK PO SCH (09:00)
[2022-05-19] MEDS: TIMOLOL MAL/DORZOLAM HCL OPHTH 10 ML BOTTLE LEFTEYE SCH (09:00)
[2022-05-19] MEDS: DOCUSATE SODIUM 100 MG CAPSULE PO SCH ×2 (09:00→17:24)
[2022-05-19] MEDS: MULTIVIT W/MINERALS 1 TAB TABLET PO SCH (09:00)
[2022-05-19] MEDS: FINASTERIDE (5 MG) 5 MG TABLET PO SCH (09:00)
[2022-05-19] MEDS: BRIMONIDINE TARTRATE OPHT SOLN 5 ML BOTTLE LEFTEYE SCH ×3 (09:00→17:25)
[2022-05-19] MEDS: Z GUARD REMEDY 4 OZ OINT TP SCH (09:00)
[2022-05-19] MEDS: glipiZIDE 5 MG TABLET PO SCH (09:00)
[2022-05-19] MEDS: CHOLECALCIFEROL 1,000 UNIT TABLET (VIT D3) PO SCH (09:00)
[2022-05-19] MEDS: DIVALPROEX SODIUM 125 MG CAP.SPRINK PO SCH ×3 (09:00→17:24)
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
[2022-05-19] MEDS ORDERED: diphenhydrAMINE HCL 50 MG/ML VIAL IM ONE (12:00)
--- NOTE | 2022-05-19 12:07 | NUR ---
ms rn dr. ocampo ordered haldol 10mg im and benadryl 25mg m.
[2022-05-19] MEDS ORDERED: HALOPERIDOL LACTATE INJ 5 MG/ML VIAL IM ONE (12:30)
[2022-05-19 16:00] VITALS: BP 122/64
[2022-05-19] MEDS: LATANOPROST EYE DROP 0.005% 2.5 ML BOTTLE EACHEYE SCH (17:25)
[2022-05-19] MEDS: INSULIN REGULAR, HUMAN 100 UNIT/ML 3 ML VIAL SQ PRN (18:15)
--- NOTE | 2022-05-19 18:42 | NUR ---
ms rn patient on bed, cooperative at this time, took all his meds, but refused insulin coverage, no distress noted ,all needs attended.
--- NOTE | 2022-05-19 20:08 | NUR ---
RN NOTES: PATIENT RESTING IN ROOM, NO S/SX OF ACUTE DISTRESS NOTED. PATIENT GUARDED, EASILY AGITATED, ANXIOUS,UNCOOPERATIVE, DISORGANIZED,GIVING INAPPROPRIATE ANSWER TO QUESTIONS, PARANOID, NEEDS FREQUENT REDIRECTION.SELECTIVE WITH MEDS.ENCOURAGE TO VERBALIZED ANY FEELING OR CONCERN, SAFETY MEASURES IN PLACE. WILL CONTINUE TO MONITOR Q15MIN ROUNDS FOR SAFETY AND BEHAVIOR.
[2022-05-19 21:32] VITALS: BP 114/63
[2022-05-19] MEDS: INSULIN GLARGINE, 100 UNIT/ML CARTRIDGE SQ SCH (21:51)
[2022-05-19] MEDS: SENNOSIDES 8.6 MG TABLET PO SCH (21:51)
[2022-05-19] MEDS: TAMSULOSIN 0.4 MG CAP.SR.24H PO SCH (21:52)
[2022-05-19] MEDS: *INSULIN REGULAR(HUMULIN R)HUM 100 UNIT/ML VIAL SQ PRN (22:16)
--- NOTE | 2022-05-19 22:22 | NUR ---
RN NOTE:PT. BLOOD SUGAR IS 216 MGDL, REFUSED 4 UNITS OF COVERAGE DUE TO UNCOOPERTIVE, EASILY AGITATED,PARANOID, NON REDIRECTABLE, ENCOURAGED X 3 PT. STRONGLY REFUSED, PER PT. STATES I WANT ONLY LANTUS TAKEN,WILL CONTINUITY WITH CARE .
[2022-05-20] MEDS: PANTOPRAZOLE 40 MG TABLET.DR PO SCH (07:30)
[2022-05-20 08:00] VITALS: BP 117/61
[2022-05-20] MEDS: BLOOD SUGAR DIAGNOSTIC 1 EACH STRIP VI SCH ×4 (08:40→22:08)
[2022-05-20] MEDS: acetaZOLAMIDE 250 MG TABLET PO SCH (08:41)
[2022-05-20] MEDS: TIMOLOL MAL/DORZOLAM HCL OPHTH 10 ML BOTTLE LEFTEYE SCH (08:41)
[2022-05-20] MEDS: BRIMONIDINE TARTRATE OPHT SOLN 5 ML BOTTLE LEFTEYE SCH ×3 (08:41→17:00)
[2022-05-20] MEDS: DOCUSATE SODIUM 100 MG CAPSULE PO SCH ×2 (08:42→17:00)
[2022-05-20] MEDS: HALOPERIDOL 5 MG TABLET PO SCH ×2 (09:00→17:00)
[2022-05-20] MEDS: POLYETHYLENE GLYCOL 3350 17 GM POWD.PACK PO SCH (09:00)
[2022-05-20] MEDS: MULTIVIT W/MINERALS 1 TAB TABLET PO SCH (09:00)
[2022-05-20] MEDS: FAMOTIDINE (20 MG) 20 MG TABLET PO SCH (09:00)
[2022-05-20] MEDS: METFORMIN 500 MG TABLET PO SCH ×2 (09:00→17:00)
[2022-05-20] MEDS: DIVALPROEX SODIUM 125 MG CAP.SPRINK PO SCH ×3 (09:00→17:00)
[2022-05-20] MEDS: glipiZIDE 5 MG TABLET PO SCH (09:00)
[2022-05-20] MEDS: CHOLECALCIFEROL 1,000 UNIT TABLET (VIT D3) PO SCH (09:00)
[2022-05-20] MEDS: Z GUARD REMEDY 4 OZ OINT TP SCH (09:00)
[2022-05-20] MEDS: FINASTERIDE (5 MG) 5 MG TABLET PO SCH (09:00)
--- NOTE | 2022-05-20 10:47 | NUR ---
GPS/RN ACCUCHECK WITH YI=997 PT REFUSED INSULIN COVERAGE. PT REFUSED ALL AM MEDS OFFERED X3
--- NOTE | 2022-05-20 12:26 | NUR ---
GPS/RN PT REFUSED ACCUCHECK AND REFUSED ALL 1300 MEDS OFFERED X3
--- NOTE | 2022-05-20 12:27 | NUR ---
Mary from the court called for schedule of the [place]iese Hearing and it will be on Monday05/23/22 @ [address]. [address] Keita made aware.
[2022-05-20] MEDS: LATANOPROST EYE DROP 0.005% 2.5 ML BOTTLE EACHEYE SCH (17:25)
--- NOTE | 2022-05-20 17:26 | NUR ---
GPS/RN PT REFUSED ACCUCHECK AND 1700 MEDS. OFFERED X3
--- NOTE | 2022-05-20 19:30 | NUR ---
GPS RN NOTE, RECEIVED PATIENT AWAKE AND IN BED, NO S/S OR COMPLAINTS OF PAIN AT THIS TIME. PATIENT IS DISPLAYING NO S/S OF APPARENT DISTRESS AT THIS TIME. PATIENT BREATHING IS UNLABORED WITH EQUAL RISE AND FALL OF THE CHEST. PATIENT IS ALERT AND ORIENTED X 1-2 ON ROOM AIR WITH A SPO2 99%. PATIENT IS SELECTIVE WITH MEDICATIONS, UNPREDICTABLE, DISORGANIZED, FORGETFUL, AND UNCOOPERATIVE. PATIENT DENIES SUICIDAL AND HOMICIDAL IDEATIONS AT THIS TIME. PATIENT ASSISTED WITH TURNING AND REPOSITIONING Q2HR AND PRN FOR COMFORT AND CIRCULATION. PATIENT HAS NO NEEDS AT THIS TIME. PATIENT EDUCATED ON THE USE OF THE CALL HATHAWAY. PATIENT BED SIDE RAILS UP X 2 FOR SAFETY. PATIENT BED IS LOCKED, LOW, WITH BED ALARM ON. WILL CONTINUE TO MONITOR THIS PATIENT Q15 MINUTES WITH THE HELP OF STAFF TO MAINTAIN SAFETY.
[2022-05-20 19:58] VITALS: BP 117/62
[2022-05-20] MEDS: SENNOSIDES 8.6 MG TABLET PO SCH (21:57)
[2022-05-20] MEDS: TAMSULOSIN 0.4 MG CAP.SR.24H PO SCH (21:57)
[2022-05-20] MEDS: INSULIN GLARGINE, 100 UNIT/ML CARTRIDGE SQ SCH (22:00)
--- NOTE | 2022-05-20 22:09 | NUR ---
GPS RN NOTE, PERFORMED ACCU CHECK ON PATIENT WITH A BLOOD SUGAR RESULT OF 222. PATIENT REFUSED INSULIN COVERAGE AT THIS TIME. OFFERED LANTUS AND REGULAR INSULIN THREE TIMES AND STILL PATIENT REFUSED, " I DON'T WANT ANY INSULIN AND YOU CAN'T MAKE HAVE IT ". EDUCATED PATIENT ON THE RISKS AND BENEFITS OF HAVING INSULIN AND REFUSING INSULIN. WILL CONTINUE TO MONITOR THIS PATIENT WITH THE HELP OF STAFF.
[2022-05-20] MEDS: *INSULIN REGULAR(HUMULIN R)HUM 100 UNIT/ML VIAL SQ PRN (22:15)
[2022-05-21] MEDS: PANTOPRAZOLE 40 MG TABLET.DR PO SCH (07:30)
[2022-05-21] MEDS: BLOOD SUGAR DIAGNOSTIC 1 EACH STRIP VI SCH ×4 (07:30→22:12)
[2022-05-21 08:00] VITALS: BP 117/76
[2022-05-21] MEDS: BRIMONIDINE TARTRATE OPHT SOLN 5 ML BOTTLE LEFTEYE SCH ×3 (08:05→16:13)
[2022-05-21] MEDS: acetaZOLAMIDE 250 MG TABLET PO SCH (08:06)
[2022-05-21] MEDS: MULTIVIT W/MINERALS 1 TAB TABLET PO SCH (08:06)
[2022-05-21] MEDS: POLYETHYLENE GLYCOL 3350 17 GM POWD.PACK PO SCH (08:06)
[2022-05-21] MEDS: FINASTERIDE (5 MG) 5 MG TABLET PO SCH (08:06)
[2022-05-21] MEDS: FAMOTIDINE (20 MG) 20 MG TABLET PO SCH (08:06)
[2022-05-21] MEDS: TIMOLOL MAL/DORZOLAM HCL OPHTH 10 ML BOTTLE LEFTEYE SCH (08:06)
[2022-05-21] MEDS: Z GUARD REMEDY 4 OZ OINT TP SCH (08:07)
[2022-05-21] MEDS: CHOLECALCIFEROL 1,000 UNIT TABLET (VIT D3) PO SCH (08:07)
[2022-05-21] MEDS: HALOPERIDOL 5 MG TABLET PO SCH ×3 (08:12→16:13)
[2022-05-21] MEDS: DOCUSATE SODIUM 100 MG CAPSULE PO SCH ×2 (08:12→16:13)
[2022-05-21] MEDS: DIVALPROEX SODIUM 125 MG CAP.SPRINK PO SCH ×3 (08:12→16:13)
[2022-05-21] MEDS: METFORMIN 500 MG TABLET PO SCH ×2 (08:12→16:13)
[2022-05-21] MEDS: glipiZIDE 5 MG TABLET PO SCH (08:12)
--- NOTE | 2022-05-21 11:00 | NUR ---
GPS/RN PT REFUSED ALL AM MEDS AND ACCUCHECK. OFFERED X3. DR HERNANDEZ AND CANDELARIA SPRINGER MADE AWARE
[2022-05-21 16:00] VITALS: BP 109/71
[2022-05-21] MEDS: LATANOPROST EYE DROP 0.005% 2.5 ML BOTTLE EACHEYE SCH (18:00)
--- NOTE | 2022-05-21 19:30 | NUR ---
GPS RN NOTE, RECEIVED PATIENT AWAKE AND IN BED, NO S/S OR COMPLAINTS OF PAIN AT THIS TIME. PATIENT IS DISPLAYING NO S/S OF APPARENT DISTRESS AT THIS TIME. PATIENT BREATHING IS UNLABORED WITH EQUAL RISE AND FALL OF THE CHEST. PATIENT IS ALERT AND ORIENTED X 1-2 ON ROOM AIR WITH A SPO2 96%. PATIENT IS SELECTIVE WITH MEDICATIONS, UNPREDICTABLE, DISORGANIZED, FORGETFUL, AND UNCOOPERATIVE. PATIENT DENIES SUICIDAL AND HOMICIDAL IDEATIONS AT THIS TIME. PATIENT ASSISTED WITH TURNING AND REPOSITIONING Q2HR AND PRN FOR COMFORT AND CIRCULATION. PATIENT HAS NO NEEDS AT THIS TIME. PATIENT EDUCATED ON THE USE OF THE CALL HATHAWAY. PATIENT BED SIDE RAILS UP X 2 FOR SAFETY. PATIENT BED IS LOCKED, LOW, WITH BED ALARM ON. WILL CONTINUE TO MONITOR THIS PATIENT Q15 MINUTES WITH THE HELP OF STAFF TO MAINTAIN SAFETY.
[2022-05-21 20:00] VITALS: BP 127/68
[2022-05-21] MEDS: TAMSULOSIN 0.4 MG CAP.SR.24H PO SCH (22:00)
[2022-05-21] MEDS: INSULIN GLARGINE, 100 UNIT/ML CARTRIDGE SQ SCH (22:00)
[2022-05-21] MEDS: SENNOSIDES 8.6 MG TABLET PO SCH (22:00)
--- NOTE | 2022-05-21 22:11 | NUR ---
GPS RN NOTE, PATIENT REFUSED FLOMAX 0.4MG PO HS AND SENOKOT 8.6MG PO HS. OFFERED BOTH MEDICATIONS THREE TIMES AND STILL PATIENT REFUSED STATING, " NO HOT TEA WOKS BETTER THEN THAT MEDICATION AND I'M NOT CONSTIPATED ". EDUCATED PATIENT ON THE RISKS AND BENEFITS OF TAKING AND REFUSING AFOREMENTIONED MEDICATION. WILL CONTINUE TO MONITOR THIS PATIENT WITH THE HELP OF STAFF.
--- NOTE | 2022-05-21 22:12 | NUR ---
GPS RN NOTE, PERFORMED ACCU CHECK ON PATIENT WITH A BLOOD SUGAR RESULT OF 345. PATIENT REFUSED INSULIN COVERAGE AT THIS TIME. OFFERED LANTUS 10 UNITS SQ HS AND REGULAR 8 UNITS SQ HS THREE TIMES AND STILL PATIENT REFUSED, " I DON'T WANT ANY INSULIN AND YOU CAN'T MAKE HAVE IT ". EDUCATED PATIENT ON THE RISKS AND BENEFITS OF HAVING INSULIN AND REFUSING INSULIN. WILL CONTINUE TO MONITOR THIS PATIENT WITH THE HELP OF STAFF.
[2022-05-21] MEDS: *INSULIN REGULAR(HUMULIN R)HUM 100 UNIT/ML VIAL SQ PRN (22:13)
[2022-05-22] MEDS: PANTOPRAZOLE 40 MG TABLET.DR PO SCH (07:30)
[2022-05-22 08:00] VITALS: BP 127/76
[2022-05-22] MEDS: BLOOD SUGAR DIAGNOSTIC 1 EACH STRIP VI SCH ×4 (08:34→22:21)
[2022-05-22] MEDS: BRIMONIDINE TARTRATE OPHT SOLN 5 ML BOTTLE LEFTEYE SCH ×3 (08:34→17:00)
[2022-05-22] MEDS: POLYETHYLENE GLYCOL 3350 17 GM POWD.PACK PO SCH (08:35)
[2022-05-22] MEDS: METFORMIN 500 MG TABLET PO SCH ×2 (08:35→17:00)
[2022-05-22] MEDS: FAMOTIDINE (20 MG) 20 MG TABLET PO SCH (08:35)
[2022-05-22] MEDS: FINASTERIDE (5 MG) 5 MG TABLET PO SCH (08:35)
[2022-05-22] MEDS: TIMOLOL MAL/DORZOLAM HCL OPHTH 10 ML BOTTLE LEFTEYE SCH (08:35)
[2022-05-22] MEDS: HALOPERIDOL 5 MG TABLET PO SCH ×3 (08:35→17:00)
[2022-05-22] MEDS: glipiZIDE 5 MG TABLET PO SCH (08:35)
[2022-05-22] MEDS: acetaZOLAMIDE 250 MG TABLET PO SCH (08:35)
[2022-05-22] MEDS: DIVALPROEX SODIUM 125 MG CAP.SPRINK PO SCH ×3 (08:35→17:00)
[2022-05-22] MEDS: DOCUSATE SODIUM 100 MG CAPSULE PO SCH ×2 (08:35→17:00)
[2022-05-22] MEDS: MULTIVIT W/MINERALS 1 TAB TABLET PO SCH (08:36)
[2022-05-22] MEDS: CHOLECALCIFEROL 1,000 UNIT TABLET (VIT D3) PO SCH (08:36)
[2022-05-22] MEDS: Z GUARD REMEDY 4 OZ OINT TP SCH (08:36)
--- NOTE | 2022-05-22 08:38 | NUR ---
GPS/RN ACCUCHECK WITH AU=232. PT REFUSED INSULINE COVERAGE AND ALL AM MEDS OFFERED X3
--- NOTE | 2022-05-22 12:23 | NUR ---
GPS/RN PT REFUSED ACCUCHECK AND MEDS SCHEDULED FOR 1300. OFFERED X3
[2022-05-22 16:00] VITALS: BP 109/59
--- NOTE | 2022-05-22 17:11 | NUR ---
GPS/RN PT REFUSED 1700 MEDS OFFERED X3
--- NOTE | 2022-05-22 21:12 | NUR ---
RN note: Patient refused skin assessment.Offered 3 x but started to b argumentative and aggressive.Will continue to monitor q15 min rounds for safety.
[2022-05-22] MEDS: SENNOSIDES 8.6 MG TABLET PO SCH (21:23)
[2022-05-22] MEDS: TAMSULOSIN 0.4 MG CAP.SR.24H PO SCH (21:23)
[2022-05-22] MEDS: INSULIN GLARGINE, 100 UNIT/ML CARTRIDGE SQ SCH ×2 (21:43→21:54)
[2022-05-22] MEDS: INSULIN REGULAR, HUMAN 100 UNIT/ML 3 ML VIAL SQ PRN (21:44)
[2022-05-22] MEDS: *INSULIN REGULAR(HUMULIN R)HUM 100 UNIT/ML VIAL SQ PRN (21:53)
[2022-05-23] MEDS: PANTOPRAZOLE 40 MG TABLET.DR PO SCH (07:30)
[2022-05-23] MEDS: BLOOD SUGAR DIAGNOSTIC 1 EACH STRIP VI SCH ×4 (07:30→21:15)
[2022-05-23 08:00] VITALS: BP 131/65
[2022-05-23] MEDS: DOCUSATE SODIUM 100 MG CAPSULE PO SCH ×2 (09:00→17:00)
[2022-05-23] MEDS: HALOPERIDOL 5 MG TABLET PO SCH ×3 (09:00→21:13)
[2022-05-23] MEDS: BRIMONIDINE TARTRATE OPHT SOLN 5 ML BOTTLE LEFTEYE SCH ×3 (09:00→17:00)
[2022-05-23] MEDS: acetaZOLAMIDE 250 MG TABLET PO SCH (09:00)
[2022-05-23] MEDS: CHOLECALCIFEROL 1,000 UNIT TABLET (VIT D3) PO SCH (09:00)
[2022-05-23] MEDS: FAMOTIDINE (20 MG) 20 MG TABLET PO SCH (09:00)
[2022-05-23] MEDS: POLYETHYLENE GLYCOL 3350 17 GM POWD.PACK PO SCH (09:00)
[2022-05-23] MEDS: DIVALPROEX SODIUM 125 MG CAP.SPRINK PO SCH ×2 (09:00→21:12)
[2022-05-23] MEDS: glipiZIDE 5 MG TABLET PO SCH (09:00)
[2022-05-23] MEDS: FINASTERIDE (5 MG) 5 MG TABLET PO SCH (09:00)
[2022-05-23] MEDS: MULTIVIT W/MINERALS 1 TAB TABLET PO SCH (09:00)
[2022-05-23] MEDS: TIMOLOL MAL/DORZOLAM HCL OPHTH 10 ML BOTTLE LEFTEYE SCH (09:00)
[2022-05-23] MEDS: Z GUARD REMEDY 4 OZ OINT TP SCH (09:00)
[2022-05-23] MEDS: METFORMIN 500 MG TABLET PO SCH ×2 (09:00→17:00)
[2022-05-23] MEDS ORDERED: HALOPERIDOL LACTATE INJ 5 MG/ML VIAL IM PRN (10:00)
--- NOTE | 2022-05-23 11:11 | NUR ---
NURSE NOTE: PT REFUSED AM MEDS, BACK UP SHOT GIVEN ORDERED. PT IN STABLE COND. WILL CONT TO MONITOR.
--- NOTE | 2022-05-23 13:36 | NUR ---
RODY Family Contact: SW spoke with pt's Low ([phone]) and notified of riese hearing and stated pt has been refusing medications.
[2022-05-23 16:00] VITALS: BP 119/76
--- NOTE | 2022-05-23 18:45 | NUR ---
NURSE NOTE: PT REFUSED MEDS AND ACCU CHECK THROUGHOUT SHIFT.
[2022-05-23 19:35] VITALS: BP 119/62
[2022-05-23] MEDS: TAMSULOSIN 0.4 MG CAP.SR.24H PO SCH (21:13)
[2022-05-23] MEDS: SENNOSIDES 8.6 MG TABLET PO SCH (21:13)
[2022-05-23] MEDS: TEMAZEPAM 7.5 MG CAPSULE PO PRN (21:13)
[2022-05-23] MEDS: INSULIN GLARGINE, 100 UNIT/ML CARTRIDGE SQ SCH (21:15)
[2022-05-23] MEDS: *INSULIN REGULAR(HUMULIN R)HUM 100 UNIT/ML VIAL SQ PRN (21:20)
[2022-05-24] MEDS: PANTOPRAZOLE 40 MG TABLET.DR PO SCH (07:49)
[2022-05-24 08:00] VITALS: BP 100/51
[2022-05-24] MEDS: CHOLECALCIFEROL 1,000 UNIT TABLET (VIT D3) PO SCH (08:16)
[2022-05-24] MEDS: acetaZOLAMIDE 250 MG TABLET PO SCH (08:16)
[2022-05-24] MEDS: MULTIVIT W/MINERALS 1 TAB TABLET PO SCH (08:20)
[2022-05-24] MEDS: DIVALPROEX SODIUM 125 MG CAP.SPRINK PO SCH ×2 (08:20→21:24)
[2022-05-24] MEDS: glipiZIDE 5 MG TABLET PO SCH (08:20)
[2022-05-24] MEDS: FINASTERIDE (5 MG) 5 MG TABLET PO SCH (08:20)
[2022-05-24] MEDS: DOCUSATE SODIUM 100 MG CAPSULE PO SCH ×2 (08:20→17:23)
[2022-05-24] MEDS: METFORMIN 500 MG TABLET PO SCH ×2 (08:20→17:23)
[2022-05-24] MEDS: HALOPERIDOL 5 MG TABLET PO SCH ×2 (08:20→21:23)
[2022-05-24] MEDS: POLYETHYLENE GLYCOL 3350 17 GM POWD.PACK PO SCH (08:20)
[2022-05-24] MEDS: FAMOTIDINE (20 MG) 20 MG TABLET PO SCH (08:20)
[2022-05-24] MEDS: Z GUARD REMEDY 4 OZ OINT TP SCH (08:22)
[2022-05-24] MEDS: BLOOD SUGAR DIAGNOSTIC 1 EACH STRIP VI SCH ×4 (08:23→21:31)
[2022-05-24] MEDS: TIMOLOL MAL/DORZOLAM HCL OPHTH 10 ML BOTTLE LEFTEYE SCH (08:26)
[2022-05-24] MEDS: BRIMONIDINE TARTRATE OPHT SOLN 5 ML BOTTLE LEFTEYE SCH ×3 (08:26→17:24)
[2022-05-24] MEDS: *INSULIN REGULAR(HUMULIN R)HUM 100 UNIT/ML VIAL SQ PRN ×2 (08:33→21:32)
[2022-05-24 16:00] VITALS: BP 108/58
[2022-05-24] MEDS: INSULIN REGULAR, HUMAN 100 UNIT/ML 3 ML VIAL SQ PRN (17:38)
[2022-05-24 19:25] VITALS: BP 100/52
[2022-05-24] MEDS: TAMSULOSIN 0.4 MG CAP.SR.24H PO SCH (21:23)
[2022-05-24] MEDS: SENNOSIDES 8.6 MG TABLET PO SCH (21:23)
[2022-05-24] MEDS: INSULIN GLARGINE, 100 UNIT/ML CARTRIDGE SQ SCH (21:31)
[2022-05-25 08:00] VITALS: BP 109/54
[2022-05-25] MEDS: PANTOPRAZOLE 40 MG TABLET.DR PO SCH (08:08)
[2022-05-25] MEDS: BLOOD SUGAR DIAGNOSTIC 1 EACH STRIP VI SCH ×4 (08:09→21:42)
[2022-05-25] MEDS: POLYETHYLENE GLYCOL 3350 17 GM POWD.PACK PO SCH (08:52)
[2022-05-25] MEDS: FINASTERIDE (5 MG) 5 MG TABLET PO SCH (08:53)
[2022-05-25] MEDS: HALOPERIDOL 5 MG TABLET PO SCH ×2 (08:53→21:13)
[2022-05-25] MEDS: DOCUSATE SODIUM 100 MG CAPSULE PO SCH ×2 (08:53→17:16)
[2022-05-25] MEDS: FAMOTIDINE (20 MG) 20 MG TABLET PO SCH (08:53)
[2022-05-25] MEDS: glipiZIDE 5 MG TABLET PO SCH (08:53)
[2022-05-25] MEDS: acetaZOLAMIDE 250 MG TABLET PO SCH (08:53)
[2022-05-25] MEDS: METFORMIN 500 MG TABLET PO SCH ×2 (08:53→17:16)
[2022-05-25] MEDS: MULTIVIT W/MINERALS 1 TAB TABLET PO SCH (08:53)
[2022-05-25] MEDS: CHOLECALCIFEROL 1,000 UNIT TABLET (VIT D3) PO SCH (08:53)
[2022-05-25] MEDS: DIVALPROEX SODIUM 125 MG CAP.SPRINK PO SCH ×2 (08:57→21:14)
[2022-05-25] MEDS: *INSULIN REGULAR(HUMULIN R)HUM 100 UNIT/ML VIAL SQ PRN ×3 (09:10→21:42)
[2022-05-25] MEDS: BRIMONIDINE TARTRATE OPHT SOLN 5 ML BOTTLE LEFTEYE SCH ×3 (09:10→17:16)
[2022-05-25] MEDS: TIMOLOL MAL/DORZOLAM HCL OPHTH 10 ML BOTTLE LEFTEYE SCH (09:11)
[2022-05-25] MEDS: Z GUARD REMEDY 4 OZ OINT TP SCH (09:11)
[2022-05-25] MEDS ORDERED: HALOPERIDOL DECANOATE IM 100 MG/ML AMPUL IM ONE (14:00)
[2022-05-25 16:23] VITALS: BP 115/59
[2022-05-25] MEDS: LATANOPROST EYE DROP 0.005% 2.5 ML BOTTLE EACHEYE SCH (17:17)
[2022-05-25 20:03] VITALS: BP 122/61
--- NOTE | 2022-05-25 20:07 | NUR ---
RN NOTES; RECEIVED PT IN BED RESTING AAOX3 ,ABLE TO MAKE NEEDS KNOWN,ON RM AIR,JAMES WELL NO SOB/DISTRESS NOTED,NO COMPLAIN OF PAIN/DISCOMFORT NOTED,NO BEHAVIORAL CHANGES AT THIS TIME,SAFETY MEASURE IN PLACE.WIIL CONTINUE TO MONITOR.
[2022-05-25] MEDS: SENNOSIDES 8.6 MG TABLET PO SCH (21:13)
[2022-05-25] MEDS: TAMSULOSIN 0.4 MG CAP.SR.24H PO SCH (21:13)
[2022-05-25] MEDS: TEMAZEPAM 7.5 MG CAPSULE PO PRN (21:14)
[2022-05-25] MEDS: INSULIN GLARGINE, 100 UNIT/ML CARTRIDGE SQ SCH (21:39)
[2022-05-26 08:00] VITALS: BP 104/68
[2022-05-26 08:17] LABS: ALBUMIN 2.7 g/dL (3.4-5.0); BILIRUBIN,TOTAL 0.2 mg/dL (0.2-1.0); CALCIUM, SERUM 9.4 mg/dL (8.5-10.1); CREATININE 1.2 mg/dL (0.6-1.3); POTASSIUM 4.2 mmol/L (3.5-5.1); TOTAL PROTEIN, SERUM 6.1 g/dL (6.4-8.2)
[2022-05-26] MEDS: FAMOTIDINE (20 MG) 20 MG TABLET PO SCH (08:24)
[2022-05-26] MEDS: BLOOD SUGAR DIAGNOSTIC 1 EACH STRIP VI SCH ×4 (08:24→21:50)
[2022-05-26] MEDS: DIVALPROEX SODIUM 125 MG CAP.SPRINK PO SCH ×2 (08:24→21:39)
[2022-05-26] MEDS: PANTOPRAZOLE 40 MG TABLET.DR PO SCH (08:24)
[2022-05-26] MEDS: acetaZOLAMIDE 250 MG TABLET PO SCH (08:24)
[2022-05-26] MEDS: MULTIVIT W/MINERALS 1 TAB TABLET PO SCH (08:24)
[2022-05-26] MEDS: DOCUSATE SODIUM 100 MG CAPSULE PO SCH ×2 (08:25→16:12)
[2022-05-26] MEDS: FINASTERIDE (5 MG) 5 MG TABLET PO SCH (08:25)
[2022-05-26] MEDS: glipiZIDE 5 MG TABLET PO SCH (08:25)
[2022-05-26] MEDS: HALOPERIDOL 5 MG TABLET PO SCH ×2 (08:25→21:39)
[2022-05-26] MEDS: CHOLECALCIFEROL 1,000 UNIT TABLET (VIT D3) PO SCH (08:25)
[2022-05-26] MEDS: POLYETHYLENE GLYCOL 3350 17 GM POWD.PACK PO SCH (08:25)
[2022-05-26] MEDS: METFORMIN 500 MG TABLET PO SCH ×2 (08:25→16:12)
[2022-05-26 08:26] LABS: BASOPHILS % (AUTO) 0.5 % (0.0-2.0); EOSINOPHILS % (AUTO) 2.4 % (0.0-6.0); HEMATOCRIT 34 % (39-51); LYMPHOCYTES # (AUTO) 2.9 K/uL (0.8-4.8); LYMPHOCYTES % (AUTO) 36.5 % (20.0-44.0); MEAN CORPUSCULAR HGB CONC 32 g/dl (31.0-36.0); MEAN CORPUSCULAR VOLUME 85 fL (80-96); MONOCYTES # (AUTO) 0.8 K/uL (0.1-1.30); MONOCYTES % (AUTO) 10.3 % (2.0-12.0); NEUTROPHILS % (AUTO) 50.3 % (43.0-81.0); PLATELET COUNT (AUTO) 249 K/uL (150-450); RED BLOOD CELL COUNT(AUTO) 4.02 MIL/uL (4.5-6.0)
[2022-05-26] MEDS: BRIMONIDINE TARTRATE OPHT SOLN 5 ML BOTTLE LEFTEYE SCH ×3 (08:27→16:12)
[2022-05-26] MEDS: TIMOLOL MAL/DORZOLAM HCL OPHTH 10 ML BOTTLE LEFTEYE SCH (08:27)
[2022-05-26] MEDS: Z GUARD REMEDY 4 OZ OINT TP SCH (09:54)
[2022-05-26] MEDS: INSULIN REGULAR, HUMAN 100 UNIT/ML 3 ML VIAL SQ PRN (12:13)
[2022-05-26 16:01] VITALS: BP 104/64
[2022-05-26] MEDS: LATANOPROST EYE DROP 0.005% 2.5 ML BOTTLE EACHEYE SCH (17:45)
--- NOTE | 2022-05-26 18:31 | NUR ---
GPS/RN NOTE Patient in bed, resting. Stayed in bed the whole morning but went to the activity room for a bit in the afternoon. Patient is cooperative and took all of his medications. remained calm the whole shift. No SOB or s/s of distress noted. Will continue to monitor until change of shift.
[2022-05-26 20:00] VITALS: BP 98/59
[2022-05-26] MEDS: TAMSULOSIN 0.4 MG CAP.SR.24H PO SCH (21:40)
[2022-05-26] MEDS: SENNOSIDES 8.6 MG TABLET PO SCH (21:40)
[2022-05-26] MEDS: *INSULIN REGULAR(HUMULIN R)HUM 100 UNIT/ML VIAL SQ PRN (21:52)
[2022-05-26] MEDS: INSULIN GLARGINE, 100 UNIT/ML CARTRIDGE SQ SCH (21:53)
--- NOTE | 2022-05-26 21:54 | NUR ---
GPS RN NOTE, PERFORMED ACCU CHECK ON PATIENT WITH A BLOOD SUGAR RESULT OF 92. PATIENT REFUSED INSULIN COVERAGE AT THIS TIME. OFFERED LANTUS 10 UNITS SQ HS AND REGULAR 10 UNITS SQ HS THREE TIMES AND STILL PATIENT REFUSED, " I DON'T WANT ANY INSULIN AND YOU CAN'T MAKE HAVE IT ". EDUCATED PATIENT ON THE RISKS AND BENEFITS OF HAVING INSULIN AND REFUSING INSULIN. WILL CONTINUE TO MONITOR THIS PATIENT WITH THE HELP OF STAFF.
[2022-05-27] MEDS: POLYETHYLENE GLYCOL 3350 17 GM POWD.PACK PO SCH (09:00)
[2022-05-27] MEDS: BLOOD SUGAR DIAGNOSTIC 1 EACH STRIP VI SCH ×4 (09:36→21:21)
[2022-05-27] MEDS: INSULIN REGULAR, HUMAN 100 UNIT/ML 3 ML VIAL SQ PRN (09:40)
[2022-05-27] MEDS: Z GUARD REMEDY 4 OZ OINT TP SCH (09:41)
[2022-05-27] MEDS: LATANOPROST EYE DROP 0.005% 2.5 ML BOTTLE EACHEYE SCH (09:42)
[2022-05-27] MEDS: TIMOLOL MAL/DORZOLAM HCL OPHTH 10 ML BOTTLE LEFTEYE SCH (09:42)
[2022-05-27] MEDS: BRIMONIDINE TARTRATE OPHT SOLN 5 ML BOTTLE LEFTEYE SCH ×3 (09:46→18:04)
[2022-05-27] MEDS: FAMOTIDINE (20 MG) 20 MG TABLET PO SCH (09:50)
[2022-05-27] MEDS: PANTOPRAZOLE 40 MG TABLET.DR PO SCH (09:51)
[2022-05-27] MEDS: FINASTERIDE (5 MG) 5 MG TABLET PO SCH (09:51)
[2022-05-27] MEDS: acetaZOLAMIDE 250 MG TABLET PO SCH (09:51)
[2022-05-27] MEDS: MULTIVIT W/MINERALS 1 TAB TABLET PO SCH (09:51)
[2022-05-27] MEDS: CHOLECALCIFEROL 1,000 UNIT TABLET (VIT D3) PO SCH (09:51)
[2022-05-27] MEDS: DOCUSATE SODIUM 100 MG CAPSULE PO SCH ×2 (09:52→17:00)
[2022-05-27] MEDS: HALOPERIDOL 5 MG TABLET PO SCH ×2 (09:52→21:18)
[2022-05-27] MEDS: glipiZIDE 5 MG TABLET PO SCH (09:52)
[2022-05-27] MEDS: METFORMIN 500 MG TABLET PO SCH ×2 (09:52→18:06)
[2022-05-27] MEDS: DIVALPROEX SODIUM 125 MG CAP.SPRINK PO SCH ×2 (09:52→21:18)
--- NOTE | 2022-05-27 10:44 | NUR ---
Facility Contact: RODY contacted [facility] and spoke with Neil gonzalez ([phone]) who stated that they do not have a bed available at this time. She reported to touch base with this fiction writer on 05/30 and they will see if they have a bed available. Addendum: 05/27/22 at 1045 by RODY DIGGS RODY faxed patient's updated progress notes ([phone])
--- NOTE | 2022-05-27 14:21 | NUR ---
RODY Family Contact: RODY spoke with pt's Low ([phone]) and informed pt's status. RODY notified that [facility] will let this television script writer know when bed is available and stated they will follow up with this television script writer Monday, 05/30. She stated she would want pt back to [facility].
--- NOTE | 2022-05-27 14:48 | NUR ---
GPS/RN PT REFUSED ACCUCHECK FOR 1200 OFFERED X3
[2022-05-27 16:00] VITALS: BP 117/69
--- NOTE | 2022-05-27 17:00 | NUR ---
GPS/RN ACCUCHECK WITH BS =78 NO COVERAGE GIVEN. THIS IS LATE ENTRY FOR 05/27/22 AT 1700
--- NOTE | 2022-05-27 19:41 | NUR ---
GPS RN NOTE, RECEIVED PATIENT AWAKE AND IN BED, NO S/S OR COMPLAINTS OF PAIN AT THIS TIME. PATIENT IS DISPLAYING NO S/S OF APPARENT DISTRESS AT THIS TIME. PATIENT BREATHING IS UNLABORED WITH EQUAL RISE AND FALL OF THE CHEST. PATIENT IS ALERT AND ORIENTED X 1-2 ON ROOM AIR WITH A SPO2 96%. PATIENT IS SELECTIVE WITH MEDICATIONS, UNPREDICTABLE, DISORGANIZED, FORGETFUL, AND COOPERATIVE. PATIENT DENIES SUICIDAL AND HOMICIDAL IDEATIONS AT THIS TIME. PATIENT ASSISTED WITH TURNING AND REPOSITIONING Q2HR AND PRN FOR COMFORT AND CIRCULATION. PATIENT HAS NO NEEDS AT THIS TIME. PATIENT EDUCATED ON THE USE OF THE CALL HATHAWAY. PATIENT BED SIDE RAILS UP X 2 FOR SAFETY. PATIENT BED IS LOCKED, LOW, WITH BED ALARM ON. WILL CONTINUE TO MONITOR THIS PATIENT Q15 MINUTES WITH THE HELP OF STAFF TO MAINTAIN SAFETY.
[2022-05-27 20:00] VITALS: BP 127/71
[2022-05-27] MEDS: SENNOSIDES 8.6 MG TABLET PO SCH (21:19)
[2022-05-27] MEDS: TAMSULOSIN 0.4 MG CAP.SR.24H PO SCH (21:19)
--- NOTE | 2022-05-27 21:21 | NUR ---
GPS RN NOTE, PERFORMED ACCU CHECK ON PATIENT WITH A BLOOD SUGAR RESULT OF 106. OFFERED LANTUS 10 UNITS SQ HS THREE TIMES AND STILL PATIENT REFUSED, " I DON'T WANT ANY INSULIN AND YOU CAN'T MAKE HAVE IT ". EDUCATED PATIENT ON THE RISKS AND BENEFITS OF HAVING INSULIN AND REFUSING INSULIN. WILL CONTINUE TO MONITOR THIS PATIENT WITH THE HELP OF STAFF.
[2022-05-27] MEDS: INSULIN GLARGINE, 100 UNIT/ML CARTRIDGE SQ SCH (21:23)
--- NOTE | 2022-05-27 21:40 | NUR ---
GPS RN NOTE, PATIENT REFUSED FLOMAX 0.4MG PO HS AND SENOKOT TAB 8.6MG PO HS. OFFERED BOTH FLOMAX AND SENOKOT THREE TIMES AND STILL PATIENT REFUSED STATING, " I HAVE NO PROBLEM PISSING AND SHITTING ". EDUCATED PATIENT ON THE RISKS AND BENEFITS OF TAKING AND REFUSING AFOREMENTIONED MEDICATION. WILL CONTINUE TO MONITOR THIS PATIENT WITH THE HELP OF STAFF.
[2022-05-28 08:00] VITALS: BP 114/60
--- NOTE | 2022-05-28 08:22 | NUR ---
GPS/RN ACCUCHECK WITH BS =115 NO COVERAGE GIVEN.
[2022-05-28] MEDS: INSULIN REGULAR, HUMAN 100 UNIT/ML 3 ML VIAL SQ PRN ×3 (08:25→17:05)
[2022-05-28] MEDS: BLOOD SUGAR DIAGNOSTIC 1 EACH STRIP VI SCH ×4 (08:25→21:47)
[2022-05-28] MEDS: DIVALPROEX SODIUM 125 MG CAP.SPRINK PO SCH ×2 (08:31→21:11)
[2022-05-28] MEDS: METFORMIN 500 MG TABLET PO SCH ×2 (08:31→16:10)
[2022-05-28] MEDS: HALOPERIDOL 5 MG TABLET PO SCH ×2 (08:31→21:11)
[2022-05-28] MEDS: FINASTERIDE (5 MG) 5 MG TABLET PO SCH (08:31)
[2022-05-28] MEDS: acetaZOLAMIDE 250 MG TABLET PO SCH (08:31)
[2022-05-28] MEDS: CHOLECALCIFEROL 1,000 UNIT TABLET (VIT D3) PO SCH (08:31)
[2022-05-28] MEDS: DOCUSATE SODIUM 100 MG CAPSULE PO SCH ×2 (08:32→16:10)
[2022-05-28] MEDS: PANTOPRAZOLE 40 MG TABLET.DR PO SCH (08:32)
[2022-05-28] MEDS: glipiZIDE 5 MG TABLET PO SCH (08:32)
[2022-05-28] MEDS: POLYETHYLENE GLYCOL 3350 17 GM POWD.PACK PO SCH (08:32)
[2022-05-28] MEDS: MULTIVIT W/MINERALS 1 TAB TABLET PO SCH (08:32)
[2022-05-28] MEDS: FAMOTIDINE (20 MG) 20 MG TABLET PO SCH (08:32)
[2022-05-28] MEDS: TIMOLOL MAL/DORZOLAM HCL OPHTH 10 ML BOTTLE LEFTEYE SCH (08:37)
[2022-05-28] MEDS: BRIMONIDINE TARTRATE OPHT SOLN 5 ML BOTTLE LEFTEYE SCH ×3 (08:37→16:10)
[2022-05-28] MEDS: Z GUARD REMEDY 4 OZ OINT TP SCH (08:38)
--- NOTE | 2022-05-28 09:00 | NUR ---
RN NOTE- PT IS ASLEEP IN BED, EASILY AWAKENED, MED COMPLIANT, FLAT AFFECT, POOR EYE CONTACT, WITHDRAWN. PO INTAKE GOOD. DIRECTABLE
[2022-05-28 16:00] VITALS: BP 136/70
[2022-05-28] MEDS: LATANOPROST EYE DROP 0.005% 2.5 ML BOTTLE EACHEYE SCH (17:04)
[2022-05-28 20:00] VITALS: BP 123/74
--- NOTE | 2022-05-28 20:37 | NUR ---
RN NOTES: RECEIVED PT. AWAKE ALERT IN THE ROOM ANXIOUS ,EASILY AGITATED ,PARANOID , FORGETFUL , DISORGNIZED,GUARDED, HYPERVERBAL. PT IS NEEDY,DEMANDING AND GETTING ANGRY EASILY.PT. SELECTIVE WITH DAILY MEDICATIONS. ALL NEEDS ATTENDED AND ANTICIPATED. ENCOURAGED PT. TO VERBALIZED ANY FEELING OR CONCERN ,WILL CONTINUE MONITORING Q15MIN FOR SAFETY AND BEHAVIOR.
[2022-05-28] MEDS: SENNOSIDES 8.6 MG TABLET PO SCH (21:11)
[2022-05-28] MEDS: TAMSULOSIN 0.4 MG CAP.SR.24H PO SCH (21:11)
[2022-05-28] MEDS: *INSULIN REGULAR(HUMULIN R)HUM 100 UNIT/ML VIAL SQ PRN (21:48)
[2022-05-28] MEDS: INSULIN GLARGINE, 100 UNIT/ML CARTRIDGE SQ SCH (21:48)
--- NOTE | 2022-05-28 21:52 | NUR ---
RN NOTE:PT. BLOOD SUGAR IS 190MGDL, PT REFUSED SCHEDULE LANTUS 10 UNITS, AND REFUSED 3 UNITS OF COVERAGE , DUE TO UNCOOPERTIVE, EASILY AGITATED,PARANOID, ENCOURAGED X 3 PT. STRONGLY REFUSED, PER PT. STATES MY BLOOD SUGAR IS FINE ,WILL CONTINUITY WITH CARE .
[2022-05-29] MEDS: PANTOPRAZOLE 40 MG TABLET.DR PO SCH (07:41)
[2022-05-29] MEDS: INSULIN REGULAR, HUMAN 100 UNIT/ML 3 ML VIAL SQ PRN ×3 (07:44→16:54)
[2022-05-29] MEDS: BLOOD SUGAR DIAGNOSTIC 1 EACH STRIP VI SCH ×4 (07:48→21:21)
[2022-05-29 08:00] VITALS: BP 101/59
[2022-05-29] MEDS: DOCUSATE SODIUM 100 MG CAPSULE PO SCH ×2 (09:00→16:07)
[2022-05-29] MEDS: POLYETHYLENE GLYCOL 3350 17 GM POWD.PACK PO SCH (09:00)
--- NOTE | 2022-05-29 09:00 | NUR ---
RN NOTE- PT IS ASLEEP IN BED, EASILY AWAKENED, MED COMPLIANT, FLAT AFFECT, POOR EYE CONTACT, WITHDRAWN. PO INTAKE GOOD. DIRECTABLE
[2022-05-29] MEDS: HALOPERIDOL 5 MG TABLET PO SCH ×2 (09:14→21:16)
[2022-05-29] MEDS: METFORMIN 500 MG TABLET PO SCH ×2 (09:14→16:07)
[2022-05-29] MEDS: FAMOTIDINE (20 MG) 20 MG TABLET PO SCH (09:15)
[2022-05-29] MEDS: DIVALPROEX SODIUM 125 MG CAP.SPRINK PO SCH ×2 (09:15→21:16)
[2022-05-29] MEDS: acetaZOLAMIDE 250 MG TABLET PO SCH (09:15)
[2022-05-29] MEDS: CHOLECALCIFEROL 1,000 UNIT TABLET (VIT D3) PO SCH (09:15)
[2022-05-29] MEDS: glipiZIDE 5 MG TABLET PO SCH (09:15)
[2022-05-29] MEDS: MULTIVIT W/MINERALS 1 TAB TABLET PO SCH (09:15)
[2022-05-29] MEDS: FINASTERIDE (5 MG) 5 MG TABLET PO SCH (09:15)
[2022-05-29] MEDS: Z GUARD REMEDY 4 OZ OINT TP SCH (09:16)
[2022-05-29] MEDS: TIMOLOL MAL/DORZOLAM HCL OPHTH 10 ML BOTTLE LEFTEYE SCH (09:17)
[2022-05-29] MEDS: BRIMONIDINE TARTRATE OPHT SOLN 5 ML BOTTLE LEFTEYE SCH ×3 (09:17→16:08)
[2022-05-29 16:00] VITALS: BP 104/55
[2022-05-29] MEDS: LATANOPROST EYE DROP 0.005% 2.5 ML BOTTLE EACHEYE SCH (17:20)
[2022-05-29 19:42] VITALS: BP 101/57
--- NOTE | 2022-05-29 20:00 | NUR ---
RN NOTE PATIENT REFUSED SKIN ASSESSMENT.
[2022-05-29] MEDS: TAMSULOSIN 0.4 MG CAP.SR.24H PO SCH (21:16)
[2022-05-29] MEDS: SENNOSIDES 8.6 MG TABLET PO SCH (21:16)
[2022-05-29] MEDS: INSULIN GLARGINE, 100 UNIT/ML CARTRIDGE SQ SCH (21:35)
[2022-05-30] MEDS: TEMAZEPAM 7.5 MG CAPSULE PO PRN (00:35)
[2022-05-30] MEDS: BLOOD SUGAR DIAGNOSTIC 1 EACH STRIP VI SCH ×2 (07:59→12:21)
[2022-05-30] MEDS: PANTOPRAZOLE 40 MG TABLET.DR PO SCH (07:59)
[2022-05-30 08:00] VITALS: BP 103/56
[2022-05-30] MEDS: DOCUSATE SODIUM 100 MG CAPSULE PO SCH (09:40)
[2022-05-30] MEDS: POLYETHYLENE GLYCOL 3350 17 GM POWD.PACK PO SCH (09:40)
[2022-05-30] MEDS: HALOPERIDOL 5 MG TABLET PO SCH (09:40)
[2022-05-30] MEDS: METFORMIN 500 MG TABLET PO SCH (09:40)
[2022-05-30] MEDS: glipiZIDE 5 MG TABLET PO SCH (09:40)
[2022-05-30] MEDS: MULTIVIT W/MINERALS 1 TAB TABLET PO SCH (09:40)
[2022-05-30] MEDS: CHOLECALCIFEROL 1,000 UNIT TABLET (VIT D3) PO SCH (09:41)
[2022-05-30] MEDS: FAMOTIDINE (20 MG) 20 MG TABLET PO SCH (09:41)
[2022-05-30] MEDS: BRIMONIDINE TARTRATE OPHT SOLN 5 ML BOTTLE LEFTEYE SCH ×2 (09:42→12:22)
[2022-05-30] MEDS: DIVALPROEX SODIUM 125 MG CAP.SPRINK PO SCH (09:42)
[2022-05-30] MEDS: acetaZOLAMIDE 250 MG TABLET PO SCH (09:42)
[2022-05-30] MEDS: TIMOLOL MAL/DORZOLAM HCL OPHTH 10 ML BOTTLE LEFTEYE SCH (09:42)
[2022-05-30] MEDS: Z GUARD REMEDY 4 OZ OINT TP SCH (09:43)
[2022-05-30] MEDS: FINASTERIDE (5 MG) 5 MG TABLET PO SCH (09:43)
--- NOTE | 2022-05-30 10:55 | NUR ---
SW Discharge Note: Patient will discharge back to [facility] SN[facility] located at [address] [place] [address]; ([phone]). Please provide transportation at 3PM. Patients Low ([phone]) is aware and agreeable. [facility] ([phone]) stated pt is welcomed back today. Patient is alert and oriented x2. Patient denies visual/auditory hallucinations. Pt denies suicidal or homicidal ideation. Pt will follow up with (Psychiatrist) Dr. Geronimo [address] [place] [address]; ([phone]). Pt will follow up with (Medical Records Technician) Dr. Ayala [address] [place] [address]; ([phone]). Pt presents with euthymic mood and congruent affect.
[2022-05-30] MEDS: INSULIN REGULAR, HUMAN 100 UNIT/ML 3 ML VIAL SQ PRN (14:10)
--- NOTE | 2022-05-30 16:30 | NUR ---
NURSE NOTE: 76YR OLD MALE DISCHARGED TO [facility] IN STABLE COND. COMPLIANT WITH MEDS, COOPERATIVE WITH TREATMENT PLANS. PT DENIES SI/HI AND INSTRUCTED TO CALL 911 IF [id number] SI/HI. BEHAVIOR IMPROVED, PSYCHIATRIC TX PLANS MET, MEDICAL TX PLANS DEFERRED FOR CONTINUAL MONITORING. EDUCATED PT ABOUT AFTER CARE PLAN AND COPY PROVIDED. RETURNED PERSONAL BELONGINGS TO PT. MEDICATIONS RECONCILED WITH DR HERNANDEZ AND DR CURIEL. REPORD GIVEN TO SWATHI NEWMAN AT [facility]. PT REFUSED TO SIGN DISCHARGE PAPERWORK. PT LEFT THE UNIT AT 1630 VIA AMBULANCE IN STABLE COND.
== END 2022-05-30 16:30 | DRG 885 ==
LOC: ER 13:20 → GPS 21:52
PROVIDERS: ADMIT Psychiatry & Neurology Psychosomatic Medicine; ATTEND Registered Nurse
DX: F25.0 Schizoaffective disorder, bipolar type (principal); N17.9 Acute kidney failure, unspecified; E11.65 Type 2 diabetes mellitus with hyperglycemia; E44.1 Mild protein-calorie malnutrition; E87.1 Hypo-osmolality and hyponatremia; G93.49 Other encephalopathy; F29 Unspecified psychosis not due to a substance or known physiological condition; F03.90 Unspecified dementia, unspecified severity, without behavioral disturbance, psychotic disturbance, mood disturbance, and anxiety; Z20.822 Contact with and (suspected) exposure to COVID-19; I10 Essential (primary) hypertension; R13.10 Dysphagia, unspecified; Z91.199 Patient's noncompliance with other medical treatment and regimen due to unspecified reason; Z79.899 Other long term (current) drug therapy; R26.9 Unspecified abnormalities of gait and mobility; Z90.49 Acquired absence of other specified parts of digestive tract; H40.9 Unspecified glaucoma; Z79.4 Long term (current) use of insulin; Z79.84 Long term (current) use of oral hypoglycemic drugs; K21.9 Gastro-esophageal reflux disease without esophagitis; E88.09 Other disorders of plasma-protein metabolism, not elsewhere classified; E78.5 Hyperlipidemia, unspecified; N40.0 Benign prostatic hyperplasia without lower urinary tract symptoms; Z68.28 Body mass index [BMI] 28.0-28.9, adult; Z73.6 Limitation of activities due to disability
CPT/HCPCS: 36415; 80048-TC; 80053-TC; 80061-TC; 80076-TC; 80164-TC; 81001; 82962-TC; 85025-TC; 87081-TC; C9803; G0480; J1200; J1630; J1631; J1815

== ENCOUNTER 2022-08-22 18:20 | Emergency (ER) | payer MEDICARE, OTHER ==
[~2022-08-22] VITALS: Ht 182.9 cm; Wt 96.6 kg
[~2022-08-22 18:20] MED LIST changes: -ACET-868 PO; -BICA50TA49 PO; +BRIM5DRO11 LEFTEYE; +CHOL200013 PO; +DORZ10DR11 LEFTEYE; -ENOX40DI SQ; +FAMO-131 PO; +GLIP5TAB13 PO; +INSU100V30 IJ; -INSU100V42 SQ; +LATA2.5D15 EACHEYE; -LISI2.5T2 PO; -MAG30ORA PO; +NETA2.5D LEFTEYE; +POLY17PO4 PO; -SITA100T PO
--- NOTE | 2022-08-22 18:28 | NUR ---
suicidal thoughts- wants to OD on drugs. Sent by PCP for [facility] admission
--- NOTE | 2022-08-22 18:47 | NUR ---
HERNANDEZ AT BEDSIDE FOR BLOOD DRAW.
--- NOTE | 2022-08-22 18:47 | NUR ---
COVID SWAB COLLECTED AND SENT TO LAB
--- NOTE | 2022-08-22 19:11 | NUR ---
URINE COLLECTED AND SENT TO LAB.
[2022-08-22 19:41] LABS: ALANINE AMINOTRANSFERASE 29 U/L (12-78); ALBUMIN 3.3 g/dL (3.4-5.0); ALCOHOL, BLOOD < 3 mg/dL (0-0); ALKALINE PHOSPHATASE 104 U/L (46-116); ASPARTATE AMINOTRANSFERASE 24 U/L (15-37); BILIRUBIN,DIRECT 0.1 mg/dL (0.0-0.2); BILIRUBIN,TOTAL 0.3 mg/dL (0.2-1.0); CALCIUM, SERUM 9.3 mg/dL (8.5-10.1); CARBON DIOXIDE 21 mmol/L (21-32); CHLORIDE 106 mmol/L (98-107); CREATININE 1.3 mg/dL (0.6-1.3); GLUCOSE 140 mg/dL (74-106); POTASSIUM 3.8 mmol/L (3.5-5.1); SODIUM SERUM 138 mmol/L (136-145); UREA NITROGEN, BLOOD 21 mg/dL (7-18)
[2022-08-22 19:43] LABS: ACETAMINOPHEN 0 ug/ml (10-30)
[2022-08-22] MEDS ORDERED: OLANZAPINE 10 MG VIAL IM ONE ×2 (20:00→20:34)
[2022-08-22 20:01] LABS: BASOPHILS % (AUTO) 0.3 % (0.0-2.0); EOSINOPHILS % (AUTO) 2.2 % (0.0-6.0); HEMATOCRIT 37 % (39-51); HEMOGLOBIN 11.6 g/dL (13.5-17.5); LYMPHOCYTES # (AUTO) 2.1 K/uL (0.8-4.8); MEAN CORPUSCULAR HGB CONC 32 g/dl (31.0-36.0); MEAN CORPUSCULAR VOLUME 86 fL (80-96); MONOCYTES % (AUTO) 12.6 % (2.0-12.0); NEUTROPHILS # (AUTO) 4.9 K/uL (1.8-8.9); NEUTROPHILS % (AUTO) 58.9 % (43.0-81.0); PLATELET COUNT (AUTO) 237 K/uL (150-450); RED BLOOD CELL COUNT(AUTO) 4.29 MIL/uL (4.5-6.0); WHITE BLOOD COUNT (AUTO) 8.2 K/uL (4.3-11.0)
[2022-08-22 20:16] LABS: BILIRUBIN,URINE NEGATIVE (NEGATIVE); COLOR,URINE YELLOW (YELLOW); LEUKOCYTE ESTERASE ,URINE NEGATIVE (NEGATIVE); NITRITE, URINE NEGATIVE (NEGATIVE); PH,URINE 7.5 (5.0-8.0); PROTEIN,URINE NEGATIVE (NEGATIVE); UGLUCOSE TRACE mg/dL (NEGATIVE)
[2022-08-22 20:33] LABS: BACTERIA,URINE None seen /HPF (None Seen); RBC,URINE 0-2 /HPF (0-2); SQUAMOUS EPITHELIAL CELL,UR 0-2 /HPF (None Seen); URINE AMORPHOUS PHOSPHATES Moderate /HPF (None Seen); WBC,URINE 0-2 /HPF (0-3)
--- NOTE | 2022-08-22 22:00 | NUR ---
CALLED LAURA CARPIO
[2022-08-22] MEDS ORDERED: DEXTROSE 50%-WATER 50 ML DISP.SYRIN IV PRN (22:30)
[2022-08-22] MEDS ORDERED: INSULIN REGULAR, HUMAN 100 UNIT/ML 3 ML VIAL SQ PRN (22:30)
--- NOTE | 2022-08-23 00:19 | NUR ---
doris JOSE at [facility] side
--- NOTE | 2022-08-23 01:00 | NUR ---
[facility] CALLED ETA 5 MINUTES
--- NOTE | 2022-08-23 01:08 | NUR ---
REPORT GIVEN TO CHANTELLE NEWMAN [facility] ACCEPTED TO ROOM 139 - A ACCEPT[address] DR. HERNANDEZ
--- NOTE | 2022-08-23 01:23 | NUR ---
[facility] UNIT 330 AT PT'S BEDSIDE TO TRANSFER PT TO [facility] PSY[facility]
--- NOTE | 2022-08-23 01:34 | NUR ---
TRANSFERRED TO [facility], PSYCH UNIT. RM 139A
[2022-08-23 01:55] VITALS: BP 109/71
[2022-08-23] MEDS ORDERED: PANTOPRAZOLE 40 MG TABLET.DR PO SCH (07:30)
[2022-08-23] MEDS ORDERED: BLOOD SUGAR DIAGNOSTIC 1 EACH STRIP IN SCH (07:30)
[2022-08-23] MEDS ORDERED: METFORMIN 500 MG TABLET PO SCH (09:00)
[2022-08-23] MEDS ORDERED: acetaZOLAMIDE 250 MG TABLET PO SCH (09:00)
[2022-08-23] MEDS ORDERED: DOCUSATE SODIUM 100 MG CAPSULE PO SCH (09:00)
[2022-08-23] MEDS ORDERED: FAMOTIDINE (20 MG) 20 MG TABLET PO SCH (09:00)
[2022-08-23] MEDS ORDERED: FINASTERIDE (5 MG) 5 MG TABLET PO SCH (09:00)
[2022-08-23] MEDS ORDERED: POLYETHYLENE GLYCOL 3350 17 GM POWD.PACK PO SCH (09:00)
[2022-08-23] MEDS ORDERED: TIMOLOL MAL/DORZOLAM HCL OPHTH 10 ML BOTTLE LEFTEYE SCH (09:00)
[2022-08-23] MEDS ORDERED: glipiZIDE 5 MG TABLET PO SCH (09:00)
[2022-08-23] MEDS ORDERED: BRIMONIDINE TARTRATE OPHT SOLN 5 ML BOTTLE LEFTEYE SCH (13:00)
[2022-08-23] MEDS ORDERED: LATANOPROST EYE DROP 0.005% 2.5 ML BOTTLE EACHEYE SCH (18:00)
[2022-08-23] MEDS ORDERED: TAMSULOSIN 0.4 MG CAP.SR.24H PO SCH (22:00)
[2022-08-23] MEDS ORDERED: SENNOSIDES 8.6 MG TABLET PO SCH (22:00)
[2022-08-23] MEDS ORDERED: Medication Not On Formulary EA (Netarsudil Mesylate (Rhopressa) 1 DROP) LEFTEYE SCH (22:00)
[2022-08-24] MEDS ORDERED: MULTIVIT W/MINERALS 1 TAB TABLET PO SCH (09:00)
[2022-08-24] MEDS ORDERED: CHOLECALCIFEROL 1,000 UNIT TABLET (VIT D3) PO SCH (09:00)
== END 2022-08-23 01:55 ==
LOC: ER 18:23
DX: R45.851 Suicidal ideations (principal); F03.90 Unspecified dementia, unspecified severity, without behavioral disturbance, psychotic disturbance, mood disturbance, and anxiety; I10 Essential (primary) hypertension; E78.5 Hyperlipidemia, unspecified; E11.42 Type 2 diabetes mellitus with diabetic polyneuropathy; E11.39 Type 2 diabetes mellitus with other diabetic ophthalmic complication; H42 Glaucoma in diseases classified elsewhere; K21.9 Gastro-esophageal reflux disease without esophagitis; Z85.46 Personal history of malignant neoplasm of prostate; Z90.49 Acquired absence of other specified parts of digestive tract; Z79.899 Other long term (current) drug therapy; Z79.4 Long term (current) use of insulin; Z79.84 Long term (current) use of oral hypoglycemic drugs; Z20.822 Contact with and (suspected) exposure to COVID-19
CPT/HCPCS: 99285; 96372; 85025; 80048; 80076; 81001; 36415; 87426; 80143; 80320; 80307; J3490; C9803; G0480

== ENCOUNTER 2024-09-02 18:10 | Inpatient (IN) | payer MEDICARE, OTHER ==
[~2024-09-02] VITALS: Ht 188 cm; Wt 54.0 kg
[~2024-09-02 18:10] MED LIST changes: +DORZ10DR11 EACHEYE; -DORZ10DR11 LEFTEYE; -INSU100V30 IJ; +INSU100V30 SQ; -LATA2.5D15 EACHEYE; +LATA2.5D15 LEFTEYE
[2024-09-02 19:31] LABS: EOSINOPHILS # (AUTO) 0.2 K/uL (0.0-0.7); HEMOGLOBIN 10.7 g/dL (13.5-17.5); LYMPHOCYTES # (AUTO) 1.8 K/uL (0.8-4.8); MEAN CORPUSCULAR HEMOGLOBIN 29 PG (26.0-33.0); MONOCYTES # (AUTO) 0.7 K/uL (0.1-1.30); NEUTROPHILS # (AUTO) 4.1 K/uL (1.8-8.9); WHITE BLOOD COUNT (AUTO) 6.8 K/uL (4.3-11.0)
[2024-09-02 19:41] LABS: BASOPHILS % (AUTO) 0.4 % (0.0-2.0); EOSINOPHILS % (AUTO) 2.5 % (0.0-6.0); HEMATOCRIT 32 % (39-51); MEAN CORPUSCULAR HGB CONC 34 g/dl (31.0-36.0); MEAN CORPUSCULAR VOLUME 84 fL (80-96); MONOCYTES % (AUTO) 10.4 % (2.0-12.0); NEUTROPHILS % (AUTO) 60.7 % (43.0-81.0); PLATELET COUNT (AUTO) 337 K/uL (150-450); RED BLOOD CELL COUNT(AUTO) 3.74 MIL/uL (4.5-6.0); RED CELL DISTRIBUTION WIDTH 12.3 % (11.5-15.0)
[2024-09-02 19:42] LABS: APPEARANCE,URINE CLEAR (CLEAR); BILIRUBIN,URINE NEGATIVE (NEGATIVE); BLOOD, URINE NEGATIVE Ery/uL (NEGATIVE); COLOR,URINE YELLOW (YELLOW); KETONES,URINE NEGATIVE (NEGATIVE); LEUKOCYTE ESTERASE ,URINE NEGATIVE (NEGATIVE); NITRITE, URINE NEGATIVE (NEGATIVE); PROTEIN,URINE NEGATIVE (NEGATIVE); UGLUCOSE NEGATIVE (NEGATIVE); UROBILINOGEN,URINE 0.2 EU/dL (0.2)
[2024-09-02 19:58] LABS: AMPHETAMINE, URINE NEGATIVE (NEGATIVE); BARBITURATE, URINE NEGATIVE (NEGATIVE); BENZODIAZEPINE, URINE NEGATIVE (NEGATIVE); CANNABINOID, URINE NEGATIVE (NEGATIVE); COCCAINE, URINE NEGATIVE (NEGATIVE); OPIATE, URINE NEGATIVE (NEGATIVE); PHENCYCLIDINE SCREEN,URINE NEGATIVE (NEGATIVE)
[2024-09-02 20:00] LABS: CALCIUM, SERUM 8.7 mg/dL (8.5-10.1); CARBON DIOXIDE 31 mmol/L (21-32); CHLORIDE 102 mmol/L (98-107); CREATININE 1.1 mg/dL (0.6-1.3); GLUCOSE 213 mg/dL (74-106); POTASSIUM 3.6 mmol/L (3.5-5.1); SODIUM SERUM 140 mmol/L (136-145); UREA NITROGEN, BLOOD 10 mg/dL (7-18)
[2024-09-02 20:04] LABS: ALANINE AMINOTRANSFERASE 13 U/L (12-78); ALBUMIN 2.8 g/dL (3.4-5.0); ALCOHOL, BLOOD < 3 mg/dL (0-10); ALKALINE PHOSPHATASE 108 U/L (46-116); ASPARTATE AMINOTRANSFERASE 14 U/L (15-37); BILIRUBIN,DIRECT 0.2 mg/dL (0.0-0.2); BILIRUBIN,TOTAL 0.6 mg/dL (0.2-1.0); TOTAL PROTEIN, SERUM 6.5 g/dL (6.4-8.2)
[2024-09-02] MEDS ORDERED: PHEN177S46 MM (20:06)
[2024-09-02] MEDS ORDERED: ACET325T53 PO (20:06)
[2024-09-02] MEDS ORDERED: HALO5TAB PO (20:06)
[2024-09-02] MEDS ORDERED: BENZ1TAB7 PO (20:06)
[2024-09-02] MEDS ORDERED: LORA-259 PO (20:06)
[2024-09-02] MEDS ORDERED: AUSTEDO XR PO (20:06)
[2024-09-02] MEDS ORDERED: DARO300T PO (20:06)
[2024-09-02] MEDS ORDERED: GLUC1KIT IM (20:06)
[2024-09-02] MEDS ORDERED: NIRM1TAB10 PO (20:06)
[2024-09-02] MEDS ORDERED: HALO50VI4 IM (20:06)
[2024-09-02] MEDS ORDERED: MAG30ORA PO (20:06)
[2024-09-02] MEDS ORDERED: INSU100I30 SQ (20:06)
[2024-09-02 20:13] LABS: ACETAMINOPHEN 0 ug/ml (10-30); SALICYLATE 0.8 mg/dL (2.8-20.0)
[2024-09-02] MEDS ORDERED: ACETAMINOPHEN 325 MG TABLET PO PRN (23:00)
[2024-09-02] MEDS ORDERED: MAGNESIUM HYDROXIDE 30 ML UDC PO PRN (23:00)
[2024-09-02] MEDS ORDERED: clonazePAM 0.5 MG TABLET PO PRN (23:00)
[2024-09-02] MEDS ORDERED: TEMAZEPAM 7.5 MG CAPSULE PO PRN (23:00)
[2024-09-02] MEDS ORDERED: MAG HYDROX/AL HYDROX/SIMETH 30 ML UDC PO PRN (23:00)
[2024-09-02] MEDS: BLOOD SUGAR DIAGNOSTIC 1 EACH STRIP IN ONE (23:46)
[2024-09-03] MEDS ORDERED: DEXTROSE 50%-WATER 50 ML DISP.SYRIN IV PRN
[2024-09-03 08:00] VITALS: BP 151/90; TEMP 98.1; O2SAT 98
[2024-09-03 08:13] LABS: CHOLESTEROL 148 mg/dL (<200); HDL CHOLESTEROL 55 mg/dL (40-60); LDL 86 mg/dL (0-99); TRIGLYCERIDES 120 mg/dL (30-150)
[2024-09-03 08:19] LABS: ALBUMIN 2.9 g/dL (3.4-5.0); BILIRUBIN,TOTAL 0.6 mg/dL (0.2-1.0); CALCIUM, SERUM 8.7 mg/dL (8.5-10.1); CREATININE 0.9 mg/dL (0.6-1.3); POTASSIUM 4.3 mmol/L (3.5-5.1); TOTAL PROTEIN, SERUM 6.6 g/dL (6.4-8.2)
[2024-09-03] MEDS: BLOOD SUGAR DIAGNOSTIC 1 EACH STRIP VI SCH (08:19)
[2024-09-03] MEDS: INSULIN REGULAR, HUMAN 100 UNIT/ML 3 ML VIAL SQ PRN (08:22)
[2024-09-03] MEDS: BENZTROPINE MESYLATE (1 MG) 1 MG TABLET PO SCH (08:34)
[2024-09-03] MEDS: DOCUSATE SODIUM 100 MG CAPSULE PO SCH (08:35)
[2024-09-03] MEDS: PANTOPRAZOLE 40 MG TABLET.DR PO SCH (08:35)
[2024-09-03] MEDS: TIMOLOL MAL/DORZOLAM HCL OPHTH 10 ML BOTTLE EACHEYE SCH (08:35)
[2024-09-03] MEDS: BRIMONIDINE TARTRATE OPHT SOLN 5 ML BOTTLE OP SCH (08:35)
[2024-09-03] MEDS: FINASTERIDE (5 MG) 5 MG TABLET PO SCH (08:35)
[2024-09-03] MEDS ORDERED: RITONAVIR PO SCH (09:00)
[2024-09-03] MEDS ORDERED: NIRMATRELVIR PO SCH (09:00)
[2024-09-03] MEDS ORDERED: [UNRECOGNIZED DRUG - OTHER] PO SCH (09:00)
[2024-09-03 16:00] VITALS: BP 160/90; TEMP 97.9; O2SAT 96
[2024-09-03] MEDS: *INSULIN REGULAR(HUMULIN R)HUM 100 UNIT/ML VIAL SQ PRN (17:01)
[2024-09-03] MEDS: LATANOPROST EYE DROP 0.005% 2.5 ML BOTTLE LEFTEYE SCH (18:00)
[2024-09-03] MEDS ORDERED: TEMAZEPAM 7.5 MG CAPSULE PO PRN (19:00)
[2024-09-03] MEDS ORDERED: clonazePAM 0.5 MG TABLET PO PRN (19:00)
[2024-09-03] MEDS: DIVALPROEX SODIUM 500 MG TABLET.DR PO SCH (21:44)
[2024-09-03] MEDS: TAMSULOSIN 0.4 MG CAP.SR.24H PO SCH (21:47)
[2024-09-03] MEDS: INSULIN GLARGINE, 100 UNIT/ML CARTRIDGE SQ SCH (22:04)
[2024-09-04 08:00] VITALS: BP 138/78; TEMP 97.8; O2SAT 98
[2024-09-04] MEDS: HALOPERIDOL 5 MG TABLET PO SCH (09:15)
[2024-09-04 16:11] VITALS: BP 125/64; TEMP 97.8; O2SAT 94
[2024-09-04 20:00] VITALS: BP 103/64; TEMP 98.1; O2SAT 96
[2024-09-05 04:37] VITALS: BP 103/64; TEMP 98.1; O2SAT 99
[2024-09-05 08:00] VITALS: BP 122/90; TEMP 98; O2SAT 100
[2024-09-05 16:00] VITALS: BP 141/78; TEMP 98.6; O2SAT 98
[2024-09-05] MEDS: NUBEQA 300 MG PO SCH (17:00)
[2024-09-05 21:14] VITALS: BP 94/58; TEMP 98.5; O2SAT 94
[2024-09-06 08:00] VITALS: BP 129/77; TEMP 97.9; O2SAT 97
[2024-09-06 10:00] VITALS: BP 129/77
[2024-09-06 16:00] VITALS: BP 109/70; TEMP 98.6; O2SAT 96
[2024-09-06] MEDS: NUBEQA PO SCH (17:26)
[2024-09-06 20:00] VITALS: BP 120/70; TEMP 98.2; O2SAT 98
[2024-09-06 21:28] VITALS: BP 120/70; TEMP 98.2; O2SAT 98
[2024-09-06 22:00] VITALS: BP 120/70
[2024-09-07 08:00] VITALS: BP 136/84; TEMP 97.7; O2SAT 98
[2024-09-07 10:00] VITALS: BP 136/84
[2024-09-07 16:00] VITALS: BP 125/68; TEMP 98.7; O2SAT 99
[2024-09-07 20:49] VITALS: BP 117/67; TEMP 98.2; O2SAT 97
[2024-09-07 22:00] VITALS: BP 117/67
[2024-09-08 08:07] VITALS: BP 159/65; TEMP 97.8; O2SAT 100
[2024-09-08 10:00] VITALS: BP 159/65
[2024-09-08 16:17] VITALS: BP 139/82; TEMP 98; O2SAT 98
[2024-09-08 20:28] VITALS: BP 115/71; TEMP 98.1; O2SAT 99
[2024-09-08 22:00] VITALS: BP 115/71
[2024-09-09 08:00] VITALS: BP 125/56; TEMP 98.7; O2SAT 97
[2024-09-09 16:00] VITALS: BP 143/78; TEMP 97.8; O2SAT 98
[2024-09-09 21:34] VITALS: BP 130/63; TEMP 97.7; O2SAT 96
[2024-09-09 22:00] VITALS: BP 105/67
[2024-09-10 08:00] VITALS: BP 120/63; TEMP 97.9; O2SAT 99
[2024-09-10 10:00] VITALS: BP 120/63
[2024-09-10 16:11] VITALS: BP 141/88; TEMP 98; O2SAT 99
[2024-09-10 20:44] VITALS: BP 106/61; TEMP 98.5; O2SAT 98
[2024-09-11 08:00] VITALS: BP 131/89; TEMP 98.9; O2SAT 100
[2024-09-11 10:00] VITALS: BP 131/89
== END 2024-09-11 16:15 | DRG 885 ==
LOC: ER 18:17 → GPS 22:21
PROVIDERS: ADMIT Psychiatry & Neurology Psychiatry; ATTEND Nurse Practitioner Acute Care
DX: F20.9 Schizophrenia, unspecified (principal); E11.65 Type 2 diabetes mellitus with hyperglycemia; E44.1 Mild protein-calorie malnutrition; Z68.1 Body mass index [BMI] 19.9 or less, adult; F03.93 Unspecified dementia, unspecified severity, with mood disturbance; I10 Essential (primary) hypertension; E78.5 Hyperlipidemia, unspecified; K21.9 Gastro-esophageal reflux disease without esophagitis; E88.09 Other disorders of plasma-protein metabolism, not elsewhere classified; F31.9 Bipolar disorder, unspecified; H40.9 Unspecified glaucoma; Z79.4 Long term (current) use of insulin; Z79.84 Long term (current) use of oral hypoglycemic drugs; Z20.822 Contact with and (suspected) exposure to COVID-19; Z73.6 Limitation of activities due to disability; F39 Unspecified mood [affective] disorder; N40.0 Benign prostatic hyperplasia without lower urinary tract symptoms
CPT/HCPCS: 36415; 71045-TC; 80048-TC; 80053-TC; 80061-TC; 80076-TC; 82962-TC; 84484-TC; 85025-TC; 87081-TC; 97112-TC; 97530-TC; G0480; J1815